=== PATIENT | female | born 1975 | race Caucasian/White ===

== ENCOUNTER → 2021-03-05 | Outpatient (CLI) | payer MEDICAID, SELFPAY | END | disposition home or self-care (01) | LOC: LABSPEC 15:54 | PROVIDERS: Visit Provider Physician Assistant | DX: Z20.822 Contact with and (suspected) exposure to COVID-19 (principal) | CPT/HCPCS: 87635; U0005; U0003 ==

== ENCOUNTER 2021-03-10 05:04 | Emergency (ER) | payer MEDICAID, SELFPAY ==
[2021-03-10] VITALS (7 sets, daily range): BP systolic 120–124; BP diastolic 78–87; PULSE 71–94; RESP 14–21; TEMP 36.5–36.6; O2SAT 96–99; BMI 23.7
--- NOTE | 2021-03-10 05:41 | EKG12_ITS ---
Test Reason : SOB Blood Pressure : / mmHG Vent. Rate : 091 BPM Atrial Rate : 091 BPM P-R Int : 134 ms QRS Dur : 080 ms QT Int : 368 ms P-R-T Axes : 061 028 026 degrees QTc Int : 452 ms Normal sinus rhythm Low voltage QRS (Limb Leads) Confirmed by BILLY MOCK, MADDIE ([id number]), content editor MIRA VELA ([id number]) on 03/12/2021 10:15:21 AM Referred By: JASON Confirmed By:MADDIE CERVANTES MD
--- NOTE | 2021-03-10 05:42 | EDS_ITS ---
HPI History of Present Illness Chief Complaint: Shortness of Breath Narrative Narrative: Patient with past medical history of asthma presents with increasing shortness of breath and upper respiratory infection type symptoms that she has had since Wednesday of last week, approximately 7 days ago. She states that she was already tested for Covid and was negative. However, she has an occasional nonproductive cough and that she has chest tightness consistent with her asthma. She denies any vomiting but occasion is slightly nauseated. She has increasing shortness of breath and chest tightness. She denies any leg swelling. No other symptoms. She feels as if her albuterol inhaler is not working well, and she takes prednisone 10 mg daily. [facility] Medical History (Updated 03/10/21 @ 07:15 by Oneil Hobson MD) Encounter for screening for COVID-19 Home Medications benzonatate 200 mg capsule 200 mg PO TID PRN #30 cap 03/05/21 [Rx Last Taken Unknown] albuterol sulfate 2 puff Q4H PRN PRN 03/10/21 [History Last Taken Unknown] doxycycline hyclate 100 mg BID 03/10/21 [History Last Taken Unknown] fluticasone propionate 2 spray INTRANASAL DAILY 03/10/21 [History Last Taken Unknown] lansoprazole [Prevacid] 15 mg DAILY 03/10/21 [History Last Taken Unknown] prednisone 10 mg DAILY 03/10/21 [History Last Taken Unknown] prednisone 40 mg PO DAILY #14 tab 03/10/21 [Rx Last Taken Unknown] Allergy/AdvReac Type Severity Reaction Status Date / Time azithromycin [From Zithromax] Allergy Unknown unknown Verified 03/10/21 05:11 codeine Allergy Unknown unknown Verified 03/10/21 05:11 Penicillins Allergy Unknown unknown Verified 03/10/21 05:11 Social History (Updated 03/05/21 @ 12:24 by Iliana Banks) Smoking Status: Never smoker ROS ROS ED ROS Narrative Constitutional: No fever, no chills. HEENT: No sore throat. No neck pain. No loss of vision. Occasional rhinorrhea. Cardiovascular: No chest pain. No palpitations. No pedal edema. Respiratory: Positive nonproductive cough, positive shortness of breath. Positive chest tightness. Abdominal: No abdominal pain. No nausea. No vomiting. Genitourinary: No dysuria. No hematuria. Musculoskeletal: No myalgias. No arthralgias. Neurologic: No headaches. No dizziness. No lightheadedness. Skin: No rash. No change in color. Psychiatric: No depression. No anxiety. EXAM Physical Exam Narrative Exam Narrative: Afebrile. Vital signs noted. HEENT: Normocephalic. Atraumatic. PERRL, EOMI. Neck soft and supple. No point tenderness or step off. Cardiovascular: Regular rate and rhythm. No murmurs, rubs, or gallops appreciated. Respiratory: No tachypnea. Lungs clear to auscultation bilaterally. Moving a fair amount of air. Dry cough on examination. Gastrointestinal: Abdomen soft, nontender, with normoactive bowel sounds. No rebound or guarding. Neurological: Awake. Alert. Nonfocal, nonlateralizing. Skin: No rash. Normal color. No pallor. Musculoskeletal: No pedal edema. Full range of motion extremities. Const Vital Signs: 03/10/21 05:05 03/10/21 05:16 03/10/21 05:18 Temperature 97.7 F L 97.8 F Temperature Source Temporal Oral Pulse Rate 86 86 Respiratory Rate 17 17 Respiratory Effort Short of Breath Respiratory Pattern Blood Pressure 124/86 H 120/78 Blood Pressure Mean 98 92 Pulse Ox 98 99 Oxygen Delivery Method Room Air Room Air Room Air 03/10/21 05:56 03/10/21 07:10 Temperature Temperature Source Pulse Rate 88 94 Respiratory Rate 18 21 H Respiratory Effort Respiratory Pattern Normal Blood Pressure Blood Pressure Mean Pulse Ox Oxygen Delivery Method MDM MDM MDM Narrative Medical decision making narrative: I do feel that the patient is having more of an asthma exacerbation. She will be swabbed for Covid. I ordered a DuoNeb aerosolized treatment along with prednisone 60 mg p.o. as a burst. I will obtain a chest x-ray in 1 view along with an EKG. Her O2 sats are 98 to 99% on room air. Her Covid swab is negative. Chest x-ray shows no acute process. She states that she is taking an antitussive from an urgent care. She started her on doxycycline. I will write her prescription for prednisone burst of 40 mg for the next 7 days. She was told not to take this in conjunction with her daily prednisone. 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 She was also given a note to be off work for 2 days. Repeat examination shows that her chest tightness has improved but it is still there. She'll be given another DuoNeb aerosolized treatment prior to discharge. Disposition is discharged home in stable condition. Lab Data Attestation: I reviewed the patient's lab results. Radiography Diagnostic Testing: Radiology Impression Chest X-Ray 03/10/21 06:10 IMPRESSION: Normal x-ray examination of the chest. Electronically Signed: Chase Shanks MD at 6:31 EDT , Service support , Discharge Plan Triage Chief Complaint: Shortness of Breath ED Provider: Oneil Hobson Dx/Rx/DC Orders Clinical Impression: Asthma, Shortness of breath, Chest tightness Instructions: ED Asthma, Acute (Adult), ED Bronchitis, No Antibiotic (Adult) Prescriptions: New prednisone 20 mg tablet 40 mg PO DAILY Qty: 14 RF: 0 No Action benzonatate 200 mg capsule 200 mg PO TID PRN (Reason: cough) Qty: 30 RF: 0 prednisone 10 mg tablet 10 mg DAILY RF: 0 doxycycline hyclate 100 mg capsule 100 mg BID RF: 0 albuterol sulfate 90 mcg/actuation HFA aerosol inhaler 2 puff Q4H PRN PRN (Reason: Dyspnea) RF: 0 fluticasone propionate 50 mcg/actuation spray,suspension 2 spray INTRANASAL DAILY RF: 0 lansoprazole [Prevacid] 15 mg Capsule,Delayed Release(Dr/Ec) 15 mg DAILY RF: 0 Stand Alone Forms: ED Work / School Excuse Referrals: ARACELIS CAREY [Other] Disposition Disposition: Home, Self Care
[2021-03-10] MEDS: Ipratropium/Albuterol Sulfate 3 ML AMPUL.NEB INHALATION ×2 (05:52→07:55)
[2021-03-10] MEDS: predniSONE 20 MG Tablet 60 MG PO (05:52)
--- NOTE | 2021-03-10 06:10 | RAD_ITS ---
STUDY: X-RAY CHEST REASON FOR EXAM: Female, 45 years old. shortness of breath TECHNIQUE: Single AP portable view of the chest. COMPARISON: None. FINDINGS: There are no confluent pulmonary infiltrates. There is no demonstrated pleural abnormality. Normal size heart. Normal mediastinum and isidro. Normal visualized aortic arch and descending thoracic aorta. There are no demonstrated acute fractures or destructive bone lesions. There is no demonstrated abnormality of the visualized soft tissue structures of the upper abdomen. RAD/Chest 1 View (Portable) IMPRESSION: Normal x-ray examination of the chest. Electronically Signed: Chase Shanks MD at 6:31 EDT , Service support ,
== END 2021-03-10 08:16 | disposition home or self-care (01) ==
PROVIDERS: Emergency Provider Emergency Medicine
DX: J45.901 Unspecified asthma with (acute) exacerbation (principal); Z20.822 Contact with and (suspected) exposure to COVID-19
CPT/HCPCS: 71045; 87426; 93005; 94640; 99283; A4216

== ENCOUNTER 2021-05-03 18:50 | Emergency (ER) | payer MEDICAID, SELFPAY ==
[2021-05-03 18:51] VITALS: BP 139/81; PULSE 91; RESP 14; TEMP 36.8; O2SAT 98; BMI 22.6
--- NOTE | 2021-05-03 19:00 | EX.ED.GENINJ ---
HPI History of Present Illness Chief Complaint: Laceration Detail of Chief Complaint: Right hand laceration Informant: patient Narrative Narrative: Patient presents to the emergency department complaint of right hand laceration that occurred prior to arrival in the emergency department. Patient states that she was pushing a been in and there was a picture frame in it and the corner of the frame lacerated her right hand. The glass was not broken and did not shatter. Patient is right-hand dominant. Patient is up-to-date on tetanus. [facility] Medical History (Updated 05/03/21 @ 19:[address] Mariana Ansari, DO) Encounter for screening for COVID-19 Home Medications benzonatate 200 mg capsule 200 mg PO TID PRN #30 cap 03/05/21 [Rx Last Taken Unknown] albuterol sulfate 2 puff Q4H PRN PRN 03/10/21 [History Last Taken Unknown] doxycycline hyclate 100 mg BID 03/10/21 [History Last Taken Unknown] fluticasone propionate 2 spray INTRANASAL DAILY 03/10/21 [History Last Taken Unknown] lansoprazole [Prevacid] 15 mg DAILY 03/10/21 [History Last Taken Unknown] prednisone 10 mg DAILY 03/10/21 [History Last Taken Unknown] prednisone 40 mg PO DAILY #14 tab 03/10/21 [Rx Last Taken Unknown] Allergy/AdvReac Type Severity Reaction Status Date / Time azithromycin [From Zithromax] Allergy Unknown unknown Verified 03/10/21 05:11 codeine Allergy Unknown unknown Verified 03/10/21 05:11 Penicillins Allergy Unknown unknown Verified 03/10/21 05:11 Iodinated Contrast Media Allergy Anaphylaxis Verified 05/03/21 18:51 [CONTRASTS] Social History (Updated 03/05/21 @ 12:24 by Iliana Banks) Smoking Status: Never smoker ROS ROS ED Constitutional Constitutional ED: Reports systems reviewed and no addt'l complaints, except as documented; Denies body ache(s), change in weight or chills Eyes Eyes: Denies acute decrease in peripheral vision, change in vision, double vision or loss of vision ENT ENT ED: Reports none; Denies ear pain, lip swelling, loss taste/smell, neck pain, otalgia or sore throat Cardiovascular Cardiovascular: Reports none; Denies abdominal pain, chest pain with activity, leg edema, lightheadedness, palpitations, rapid heart rate or syncope Respiratory/Chest Respiratory/Chest: Reports none; Denies change in mental status, dry cough, dyspnea, hemoptysis, shortness of breath at rest or shortness of breath with exertion Gastrointestinal Gastrointestinal: Reports none; Denies abdominal pain, change in stool character, diarrhea, hematemesis, hematochezia, melena, rectal bleeding or vomiting Genitourinary Genitourinary ED: Reports none; Denies abdominal discomfort, anuria, dysuria, genital pain or polyuria Musculoskeletal Musculoskeletal: Reports none and other Details: Right hand laceration ; Denies arthralgias, back pain, difficulty walking, extremity pain, muscle weakness or myalgias Integumentary Reports none; Denies abscess or rash Neurologic Neurologic: Reports none; Denies abnormal gait, confusion, focal weakness, frequent falls, headache(s), loss of vision, numbness, paresthesias, radicular pain, vertigo or weakness Psychiatric Psychiatric: Reports systems reviewed and no addt'l complaints, except as documented and none; Denies behavioral changes, confusion, difficulty concentrating, hallucinations, suicidal ideation, tactile hallucinations or visual hallucinations Endocrine Endocrinology: Denies none, cold intolerance, excessive sweating, fatigue or heat intolerance Hematologic/Lymphatic Hematologic/Lymphatic: Reports none; Denies anemia, easy bleeding or easy bruising Allergic/Immunologic Allergic/Immunologic ED: Denies as per HPI, none, lip swelling, mouth swelling, throat swelling, tongue swelling or hives EXAM Physical Exam Const Vital Signs: 05/03/21 18:51 Temperature 98.2 F Temperature Source Temporal Pulse Rate 91 Respiratory Rate 14 Blood Pressure 139/81 H Blood Pressure Mean 100 Pulse Ox 98 Oxygen Delivery Method Room Air Positive well nourished and well developed General Appearance ED: well developed and NAD HEENT Reports TM's clear and moist mucous membranes normocephalic and atraumatic; Negative for trauma or tenderness Tympanic Membrane ED: Yes TM's clear Eyes PERRL and EOMs intact bilaterally General Eye ED: Negative for pale conjunctiva or scleral icterus Neck no lymphadenopathy, supple and no JVD General: Negative for tenderness Chest Wall inspection of chest normal and palpation of chest normal Chest: Negative for tenderness Resp normal respiratory effort and clear to auscultation bilaterally Effort and Inspection: Negative for respiratory distress or pain with movement Auscultation: Negative for rhonchi, wheezes or diminished lung sounds Cardio regular rate, regular rhythm, S1 normal heart sound, S2 normal heart sound and no murmurs Peripheral Pulses: pulses 2+ throughout GI normal to inspection, nondistended, normoactive bowel sounds, soft to palpation, non-tender, non-distended and no masses Back/Spine no CVA tenderness and no thoracic nor lumbar tenderness Extremity normal to inspection Extremity Narrative: Right hand-patient has a 1.5 cm laceration in the webspace between the thumb and index finger on the volar surface. Small amount of venous oozing noted. Patient has normal range of motion flexion extension of the index finger and thumb. She is neurovascular intact. General Extremety ED: Negative for edema General Extremity: Negative for edema Neuro oriented x3, CN's II-XII intact bilaterally, no sensory deficits noted and gait normal Sensorium / Orientation: awake, alert, oriented to person, oriented to place and oriented to time Motor Exam: strength 5/5 throughout and strength abnormal Psych mental status grossly normal Skin no rashes or lesions noted and no wounds PROC Procedures Lacerations Right hand laceration: Length: 0.59 in Depth: Sub Q Shape: Linear Prep: Sterile Conditions Laceration repair: Irrigated, Lidocaine and Local Irrigated (ml): 50 Number of Sutures/[place]: 2 Suture Information: Ethilon MDM MDM MDM Narrative Medical decision making narrative: Patient was offered suture repair of her laceration. Patient agreed. She tolerated procedure well. Patient advised to follow-up with her primary care physician in 10 days for suture removal. Patient to return if increasing pain, redness, swelling, purulent drainage, or condition should worsen anyway. Discharge Plan Triage Chief Complaint: Laceration Other Complaint: Suture Remv ED Provider: Mariana Ansari Dx/Rx/DC Orders Clinical Impression: Laceration of hand, right Instructions: ED Laceration, Hand: All Closures Prescriptions: No Action benzonatate 200 mg capsule 200 mg PO TID PRN (Reason: cough) Qty: 30 RF: 0 prednisone 10 mg tablet 10 mg DAILY RF: 0 doxycycline hyclate 100 mg capsule 100 mg BID RF: 0 albuterol sulfate 90 mcg/actuation HFA aerosol inhaler 2 puff Q4H PRN PRN (Reason: Dyspnea) RF: 0 fluticasone propionate 50 mcg/actuation spray,suspension 2 spray INTRANASAL DAILY RF: 0 lansoprazole [Prevacid] 15 mg Capsule,Delayed Release(Dr/Ec) 15 mg DAILY RF: 0 prednisone 20 mg tablet 40 mg PO DAILY Qty: 14 RF: 0 Referrals: ARACELIS CAREY [Other] Activity Restrictions/Additional Instructions: Follow-up with your primary care physician in 10 days for suture removal. Disposition Disposition: Home, Self Care
[2021-05-03] MEDS: Lidocaine 1% (20 ml mdv) 20 ML Vial 4 ML INFILT (19:35)
== END 2021-05-03 19:38 | disposition home or self-care (01) ==
LOC: ED 19:08
PROVIDERS: Emergency Provider Emergency Medicine
DX: S61.411A Laceration without foreign body of right hand, initial encounter (principal); W26.8XXA Contact with other sharp object(s), not elsewhere classified, initial encounter; Y93.89 Activity, other specified; Y92.9 Unspecified place or not applicable; Y99.9 Unspecified external cause status
CPT/HCPCS: 12001; 99285

== ENCOUNTER → 2021-06-06 13:18 | Outpatient (CLI) | payer OTHER, SELFPAY ==
--- NOTE | 2021-06-06 13:22 | BI_ITS ---
MAMMOGRAPHY - BILATERAL SCREENING REASON FOR EXAM: Female, 46 years old. Routine annual screening examination. PERTINENT HISTORY: Mother with breast cancer. Grandmother with breast cancer. TECHNIQUE: Digital bilateral breast kathryn (3D mammographic acquisition) in the CC and MLO projections. 2-D mediolateral oblique (MLO) and craniocaudad (CC) views of both breasts were obtained. CAD: Full Field Digital Mammography with Computer Added Detection was performed. COMPARISON: Comparison is made with prior outside examination dated 09/27/2020. FINDINGS: Breast Composition: The breasts are extremely dense, which lowers the sensitivity of mammography. There are no dominant masses or suspicious calcifications. Stable small benign-appearing bilateral axillary No other significant abnormalities are identified. There has been no significant change since the prior study. BI/SCRN MAMM (CAD)W/KATHRYN BILAT IMPRESSION: Stable bilateral screening mammogram. Yearly follow-up mammogram recommended. (A) ASSESSMENT CATEGORY: BIRADS Category 2: Benign. A letter regarding these results will be sent to the patient by the facility within 30 days. Approximately 10% of breast cancers are not detected by mammography. A normal mammogram should not delay biopsy of a clinically suspicious abnormality. [id number] Electronically Signed: Golden Winters MD at 14:34 EST , Service support ,
== END ==
DX: Z12.31 Encounter for screening mammogram for malignant neoplasm of breast (principal)
CPT/HCPCS: 77063; 77067

== ENCOUNTER 2021-07-08 10:04 | Emergency (ER) | payer OTHER, MEDICAID, SELFPAY ==
[2021-07-08 10:05] VITALS: BP 117/75; PULSE 91; RESP 16; TEMP 35.7; BMI 22.6
--- NOTE | 2021-07-08 10:37 | US_ITS ---
STUDY: ABDOMINAL ULTRASOUND - RIGHT UPPER QUADRANT REASON FOR VISIT: Female, 46 years old . 2 day history of right upper quadrant pain with nausea. TECHNIQUE: Ultrasound evaluation of the right upper quadrant was performed with real-time and static hsu-scale imaging. TECHNICAL QUALITY: Adequate. COMPARISON: None. FINDINGS: Liver: The liver measures 15.1 cm. There is normal echogenicity of the liver. The bile ducts are within normal limits. There is hepatic color flow. The direction of portal flow is hepatopetal. There is no demonstrated mass lesion. Gallbladder: Normal distended gallbladder. The gallbladder wall measures 1.7 mm. There is a negative sonographic Bills''s sign. There is no pericholecystic fluid. There are no gallstones. Common Bile Duct (C.B.D.): The common bile duct measures 5.9 mm. Pancreas: Normal size of the head, body and tail of the pancreas. There is normal echogenicity of the pancreas. There is no demonstrated pancreatic mass or cyst. Right Kidney: Normal size of the right kidney. The right kidney measures 10.2 cm x 4.3 cm x 5.2 cm. Normal renal cortex. The right cortex measures 1.8 cm. There is no demonstrated renal mass or cyst. There is no right hydronephrosis. US/Gallbladder IMPRESSION: Normal right upper quadrant ultrasound examination. Electronically Signed: Golden Winters MD at 12:24 EST , Service support ,
[2021-07-08] MEDS: 0.9% Normal Saline 1,000 ML 1000 ML IV (11:02)
[2021-07-08] MEDS: Ondansetron 4 MG/2 ML Vial IV (11:02)
[2021-07-08] MEDS: Morphine 4 MG/ML Syringe IV (11:03)
[2021-07-08 11:17] LABS: Absolute Lymphocyte Count 1.01 X10^3/uL (0.83-4.51); Absolute Neutrophil Count 9.6 X10^3/uL (2.0-7.7); Basophil# 0.02 X10^3/uL; Basophil% 0.2 % (0-1); Eosinophil# 0.05 X10^3/uL; Eosinophils% 0.5 % (0-5); Hematocrit 43.1 % (37-47); Hemoglobin 13.8 g/dL (12.0-15.0); Lymphocyte # 1.01 X10^3/ul (0.83-4.51); Lymphocyte % 9.1 % (19-41); Mean Corpuscular Hgb 29.5 pg (27.0-32.0); Mean Corpuscular Volume 92.1 fL (81-99); Mean Platelet Vol. 10.1 fl (6.2-12.0); Monocyte# 0.35 X10^3/uL; Monocyte% 3.2 % (0-10); NRBC Flagged by Analyzer 0 % (0-5); Neutrophil # 9.59 X10^3/uL (2.7-7.7); Neutrophil % 86.5 % (47-70); Platelet Count 326 K/mm3 (150-450); RBC Distribution Width CV 12.9 % (11.6-14.6); RBC Distribution Width SD 43.6 fl (35.1-43.9); Red Blood Count 4.68 M/mm3 (4.2-5.4); White Blood Count 11.1 K/mm3 (4.4-11.0)
[2021-07-08 11:33] LABS: AST(SGOT) 10 U/L (15-37); Alanine Aminotransfer ALT/SGPT 23 U/L (13-56); Albumin, Serum 4.2 g/dL (3.2-5.0); Alkaline Phosphatase 81 U/L (45-117); Anion Gap 7 (5-15); BUN 12 mg/dL (7-18); BUN/Creat Ratio 12.2 RATIO (10-20); Bilirubin, Direct 0.13 mg/dL (0.00-0.30); Chloride 104 mmol/L (98-107); Creatinine, Serum 0.98 mg/dL (0.55-1.02); EST Glomerular Filtration Rate 65 mL/min (>60); Est Glom Filt Rate - Afr Amer 79 mL/min (>60); Estimated Creatinine Clearance 68.58 ml/min; Glucose 82 mg/dL (74-106); Lipase 228 U/L (73-393); Potassium 3.4 mmol/L (3.5-5.1); Protein, Total 8.2 g/dL (6.4-8.2); Sodium Level 140 mmol/L (136-145)
[2021-07-08] MEDS: HYDROmorphone 1 MG/ML Syringe IV (12:26)
[2021-07-08 12:28] VITALS: BP 110/70; PULSE 80; RESP 18; O2SAT 99
[2021-07-08] MEDS: Mag Hydrox/Al Hydrox/Simeth 30 ML UDC PO (12:56)
--- NOTE | 2021-07-08 13:01 | EDS_ITS ---
HPI History of Present Illness Chief Complaint: Abd Pain Narrative Narrative: Patient presents with epigastric pain, some right upper quadrant abdominal pain. This has been ongoing for a few days. No fevers chills cough or congestion. The pain does not radiate to her back. She has no lower abdominal pain. She has some nausea but no vomiting. [facility] Medical History Encounter for screening for COVID-19 Home Medications albuterol sulfate 2 puff Q4H PRN PRN 03/10/21 [History Last Taken Unknown] fluticasone propionate 2 spray INTRANASAL DAILY 03/10/21 [History Last Taken Unknown] dexlansoprazole [Dexilant] 60 mg PO DAILY 07/08/21 [History Last Taken Unknown] sucralfate [Carafate] 1 g PO BID #14 tab 07/08/21 [Rx Last Taken Unknown] Allergy/AdvReac Type Severity Reaction Status Date / Time azithromycin [From Zithromax] Allergy Unknown unknown Verified 07/08/21 10:07 codeine Allergy Unknown unknown Verified 07/08/21 10:07 Penicillins Allergy Unknown unknown Verified 07/08/21 10:07 Iodinated Contrast Media Allergy Anaphylaxis Verified 07/08/21 10:07 [CONTRASTS] Surgical History Hx of knee surgery Social History Smoking Status: Never smoker ROS ROS ED ROS Narrative Past medical history: Reviewed Medications: Reviewed Social history: Noncontributory Review of systems: All systems negative except as indicated General: No fever Eyes: No visual changes ENT: No upper airway congestion, normal voice Neck: No neck pain Cardiovascular: No chest pain Respiratory: No shortness of breath or cough Gastrointestinal: Abdominal pain as in HPI Genitourinary: No dysuria Musculoskeletal: Denies myalgias no difficulty with ambulation Skin: No rash Neurological: No memory loss, confusion or any focal weakness Psych: No recent behavioral changes Hematologic: No easy bleeding or easy bruising EXAM Physical Exam Narrative Exam Narrative: Physical exam General: Well nourished, Well developed, No Acute Distress Head: Normocephalic, Atraumatic Eyes: Conjunctiva not pale ENT: Moist mucous membranes Neck: Supple, Nontender, No lymphadenopathy Cardiovascular: Regular rate, Regular rhythm Respiratory: No distress, CTA bilaterally Abdomen: Soft, is some epigastric and right upper quadrant pain. There is no guarding or rebound. Bills's is negative however. No lower abdominal pain or pain at McBurney's. Back: Nontender, Normal Inspection. Negative for: CVA tenderness Extremities: Nontender, No edema Skin: Normal color, No rash Neurological: Alert, Normal Strength, Normal Sensation Psychological: Normal affect Const Vital Signs: 07/08/21 10:05 07/08/21 12:28 Temperature 96.2 F L Temperature Source Temporal Pulse Rate 91 80 Respiratory Rate 16 18 Blood Pressure 117/75 110/70 Blood Pressure Mean 89 83 Pulse Ox 99 Oxygen Delivery Method Room Air MDM MDM MDM Narrative Medical decision making narrative: Patient has a normal bowel work-up which likely signifies gastric etiology however there could be a gallbladder dysfunction and may need a HIDA scan. Regardless she improved she can be safely discharged for outpatient follow-up she does have an appointment with her GI doctor in the next few weeks. Lab Data Labs: Laboratory Results - last 24 hr 07/08/21 07/08/21 11:10 11:10 WBC 11.1 H RBC 4.68 Hgb 13.8 Hct 43.1 MCV 92.1 MCH 29.5 MCHC 32.0 RDW Std Deviation 43.6 RDW Coeff of Bryan 12.9 Plt Count 326 MPV 10.1 Immature Gran % (Auto) 0.500 Neut % (Auto) 86.5 H Lymph % (Auto) 9.1 L [place] % (Auto) 3.2 Eos % (Auto) 0.5 Baso % (Auto) 0.2 Absolute Neuts (auto) 9.6 H Absolute Lymphs (auto) 1.01 Nucleated RBC % 0 Sodium 140 Potassium 3.4 L Chloride 104 Carbon Dioxide 29.0 Anion Gap 7 BUN 12 Creatinine 0.98 Estim Creat Clear Calc 68.58 Est GFR (MDRD) Af Amer 79 Est GFR (MDRD) Non-Af 65 BUN/Creatinine Ratio 12.2 Glucose 82 Calcium 10.0 Total Bilirubin 0.50 Direct Bilirubin 0.13 AST 10 L ALT 23 Alkaline Phosphatase 81 Total Protein 8.2 Albumin 4.2 Globulin 4.0 Lipase 228 Radiography Diagnostic Testing: Clinical Impression(s) from Imaging Studies Gallbladder Ultrasound 07/08/21 10:37 IMPRESSION: Normal right upper quadrant ultrasound examination. Electronically Signed: Golden Winters MD at 12:24 EST , Service support , Discharge Plan Triage Chief Complaint: Abd Pain ED Provider: Van Singh Dx/Rx/DC Orders Clinical Impression: Abdominal pain Instructions: Abdominal Pain Prescriptions: New sucralfate [Carafate] 1 gram tablet 1 g PO BID Qty: 14 RF: 0 No Action albuterol sulfate 90 mcg/actuation HFA aerosol inhaler 2 puff Q4H PRN PRN (Reason: Dyspnea) RF: 0 fluticasone propionate 50 mcg/actuation spray,suspension 2 spray INTRANASAL DAILY RF: 0 Dexilant 60 mg Capsule,Biphase Delayed Releas 60 mg PO DAILY RF: 0 Referrals: ARACELIS CAREY [Other] Disposition Disposition: Home, Self Care
[2021-07-08] MEDS: Famotidine 200 MG/20 ML MDV 20 MG in 0.9% Normal Saline (Pres. free 8 ML 300 MG IV (13:11)
== END 2021-07-08 13:47 | disposition home or self-care (01) ==
PROVIDERS: Emergency Provider Emergency Medicine; Visit Provider Emergency Medicine
DX: R10.13 Epigastric pain (principal); R10.11 Right upper quadrant pain; R11.0 Nausea
CPT/HCPCS: 76705; 80048; 80076; 83690; 85025; 96361; 96374; 96375; 99284; J7030; J2405; J3490

== ENCOUNTER 2021-07-10 08:49 | Day surgery (SDC) | payer OTHER, MEDICAID, SELFPAY ==
[2021-07-10] VITALS (11 sets, daily range): BP systolic 92–121; BP diastolic 58–80; PULSE 16–101; RESP 16–20; TEMP 36.2–36.9; O2SAT 96–100; BMI 22.7
--- NOTE | 2021-07-10 | APP_PTH ---
PATIENT: ARCHIE NASH LOC: [facility] [place] U#:[id number] AGE/SX: 46/F ROOM: RE07/10/[address]: Dr. Elisha Mckee MD : [id number] BED: DIS: 07/10/2021 SPEC #: [id number] RECD: 07/11/21 11:31 STATUS: JACKI STEPH #: [id number] PEE: 07/10/21 00:[address]: Elisha Mckee DEPT: SURGICAL PATHOLOGY RECD BY: Evaristo Mason Tissues: Appendix, NOS Procedures: Surgery Specimen Level III HEADER OPERATION: Laparoscopic appendectomy PRE-OP DIAGNOSIS: Abdominal pain TISSUE SUBMITTED: Appendix MICROSCOPIC DIAGNOSIS Appendix, appendectomy: Fibrous obliteration of distal appendix. Fecal impaction. No evidence of appendicitis. AM:thelma 07/14/2021 COMMENT Case has been reviewed in consultation with Dr. Harvey who concurs with the above diagnosis. IDC:SJ MICROSCOPIC DESCRIPTION Slides are reviewed. GROSS DESCRIPTION Received in fixative is one container labeled with the patient's name and designated appendix. The specimen consists of a C-shaped appendix measuring 4 cm in length and up to 0.5 cm in diameter. The attached periappendiceal adipose tissue measures up to 1 cm in width. The serosa is glasgow, glistening. No obvious perforation is identified. The lumen is filled with fecal material. The entire appendix is submitted in two cassettes as follows: 1 ? proximal portion and distal tip, 2 ? rest of the specimen. / SAMANTHA:thelma 07/11/2021 TC:5 [facility]: [id number]
--- NOTE | 2021-07-10 09:42 | CT_ITS ---
STUDY: CT ABDOMEN AND PELVIS WITHOUT CONTRAST REASON FOR EXAM: Female, 46 years old. Several day history of right lower quadrant pain. Nausea. RADIATION DOSAGE (If Supplied By Facility): CTDIvol = ( 6.05 ) mGy, DLP = ( 282.56 ) mGycm TECHNIQUE: Transaxial images were obtained from the dome of the diaphragm to the symphysis pubis without oral contrast, and without intravenous contrast. Sagittal and coronal images were reconstructed. Individualized dose optimization techniques were used for this CT. COMPARISON: None. FINDINGS: Minimal degree of dependent bibasilar atelectasis. The visualized portions of the heart are within normal limits. Normal liver. Normal gallbladder and extrahepatic biliary system. Normal spleen. Normal pancreas. Normal bilateral adrenal glands. Normal right kidney. Normal left kidney. Normal visualized stomach. Normal small intestine. There are scattered colonic diverticula consistent with diverticulosis. There is a calcified appendicolith. Normal abdominal aorta. Normal inferior vena cava. Normal retroperitoneum. Normal urinary bladder. There is a small umbilical hernia containing fat. Normal osseous structures. CT/Abdomen/Pelvis without Cont IMPRESSION: Calcified appendicolith. No inflammatory changes are seen at this time. Electronically Signed: Golden Winters MD at 11:01 EST , Service support ,
[2021-07-10 09:50] LABS: Red Blood Cells-Urine 0 SEEN /hpf (0-5); White Blood Cells 0 SEEN /hpf (0-5)
[2021-07-10 09:51] LABS: Bacteria 0 SEEN /hpf (None Seen); Mucous, Urine 0 SEEN /hpf (<or=2+)
--- NOTE | 2021-07-10 09:54 | EDS_ITS ---
HPI HPI - GI History of Present Illness Chief Complaint: Abd Pain Informant: patient Abdominal Pain/Flank Pain Onset: Days (4) Context: Gradual Onset Timing: Continuous Quality: Burning, Cramping and Sharp Location: RUQ and Right Flank Worsened by: Food Relieved by: Nothing Nausea/Vomiting/Emesis GI Symptom: Positive for Nausea; Negative for Vomiting Diarrhea/Melena/Hematochezia GI Symptom: Negative for Diarrhea, Melena and Hematochezia Associated Symptoms Associated Symptoms: Negative for Dysuria and Hematuria Narrative Narrative: Patient presents with abdominal pain that has been getting progres sively worse over the past 4 days. Patient states her pain is worse over the right upper quadrant and right flank area. Patient states her pain has been constant. Patient was seen here 2 days ago. Patient was discharged at that time. Patient states her pain has been getting worse. Patient describes it as sharp, burning, and cramping. Patient states that is worse after eating. Patient admits to nausea but denies any vomiting. Patient denies any diarrhea, melena, or hematochezia. Patient denies any urinary complaints. Patient denies any abnormal vaginal bleeding or discharge. PFSH PFS Medical History Encounter for screening for COVID-19 Home Medications albuterol sulfate 2 puff Q4H PRN PRN 03/10/21 [History Last Taken Unknown] fluticasone propionate 2 spray INTRANASAL DAILY 03/10/21 [History Last Taken Unknown] dexlansoprazole [Dexilant] 60 mg PO DAILY 07/08/21 [History Last Taken Unknown] sucralfate [Carafate] 1 g PO BID #14 tab 07/08/21 [Rx Last Taken Unknown] oxycodone-acetaminophen 1 - 2 tab PO Q6H PRN 3 Days #15 tab 07/10/21 [Rx Last Taken Unknown] Allergy/AdvReac Type Severity Reaction Status Date / Time azithromycin [From Zithromax] Allergy Unknown unknown Verified 07/10/21 08:53 codeine Allergy Unknown unknown Verified 07/10/21 08:53 Penicillins Allergy Unknown unknown Verified 07/10/21 08:53 Iodinated Contrast Media Allergy Anaphylaxis Verified 07/10/21 08:53 [CONTRASTS] Surgical History Hx of knee surgery Social History Smoking Status: Never smoker ROS ROS ED Constitutional Constitutional ED: Reports chills; Denies fever(s) Eyes Eyes: Denies blurry vision or change in vision ENT ENT ED: Denies rhinorrhea or sore throat Cardiovascular Cardiovascular: Denies chest pain or palpitations Respiratory/Chest Respiratory/Chest: Denies cough or dyspnea Gastrointestinal Gastrointestinal: Reports abdominal pain and nausea; Denies vomiting Genitourinary Genitourinary ED: Denies dysuria or hematuria Musculoskeletal Musculoskeletal: Reports back pain; Denies neck pain Integumentary Denies abscess or rash Neurologic Neurologic: Denies headache(s) or weakness Allergic/Immunologic Allergic/Immunologic ED: Denies mouth swelling or urticaria EXAM Physical Exam Const Vital Signs: 07/10/21 08:51 07/10/21 12:00 07/10/21 13:54 Temperature 98.1 F 98 F Temperature Source Temporal Temporal Pulse Rate 74 16 L 70 Respiratory Rate 16 20 H Blood Pressure 121/63 H 120/70 Blood Pressure Mean 82 86 Pulse Ox 97 Oxygen Delivery Method Room Air Positive well nourished and well developed General Appearance ED: well developed HEENT Reports moist mucous membranes Neck supple and no JVD Resp normal respiratory effort and clear to auscultation bilaterally Cardio regular rate, regular rhythm and no murmurs GI normal to inspection, nondistended, normoactive bowel sounds and non-distended Auscultation: normoactive bowel sounds Palpation: soft and tender RUQ Back/Spine General Back: CVA tenderness right Extremity normal to inspection General Extremety ED: Negative for edema or tenderness General Extremity: Negative for edema Neuro oriented x3, CN's II-XII intact bilaterally and no sensory deficits noted Sensorium / Orientation: alert Motor Exam: strength 5/5 throughout Psych mental status grossly normal Skin no rashes or lesions noted MDM MDM MDM Narrative Medical decision making narrative: CBC was within normal limits. Comprehensive metabolic profile was normal. Lipase was normal. Urinalysis does not show any evidence of urinary tract infection. CT scan of the abdomen pelvis was obtained. There is an appendicolith noted. There is no inflammatory changes noted. There is no other acute abnormality noted. Case was discussed with Dr. Mckee. She will take the patient to the operating room today. Patient understands and is agreeable with the plan. All questions were answered. Lab Data Attestation: I reviewed the patient's lab results. Labs: Laboratory Results - last 24 hr 07/10/21 07/10/21 07/10/21 09:29 09:50 09:50 WBC 8.0 RBC 4.28 Hgb 13.0 Hct 38.9 MCV 90.9 MCH 30.4 MCHC 33.4 RDW Std Deviation 42.5 RDW Coeff of [place] 12.9 Plt Count 276 MPV 9.9 Immature Gran % (Auto) 0.400 Neut % (Auto) 71.4 H Lymph % (Auto) 20.6 [place] % (Auto) 6.3 Eos % (Auto) 1.0 Baso % (Auto) 0.3 Absolute Neuts (auto) 5.7 Absolute Lymphs (auto) 1.65 Nucleated RBC % 0 Sodium 140 Potassium 3.7 Chloride 106 Carbon Dioxide 30.0 Anion Gap 4 L BUN 11 Creatinine 0.96 Estim Creat Clear Calc 70.01 Est GFR (MDRD) Af Amer 81 Est GFR (MDRD) Non-Af 67 BUN/Creatinine Ratio 11.4 Glucose 92 Calcium 9.4 Total Bilirubin 0.50 AST 6 L ALT 19 Alkaline Phosphatase 69 Total Protein 7.1 Albumin 3.8 Globulin 3.3 Albumin/Globulin Ratio 1.2 Lipase 179 Serum , Qual Urine Color Yellow Urine Clarity Clear Urine pH 6.0 Ur Specific [place] 1.015 Urine Protein Negative Urine Glucose (UA) Normal Urine Ketones Negative Urine Occult Blood 25 H Urine Nitrite Negative Urine Bilirubin Negative Urine Urobilinogen Normal Ur Leukocyte Esterase 100 H Urine RBC 0 SEEN Urine WBC 0 SEEN Ur Squamous Epith Cells 0-5 SEEN Urine Bacteria 0 SEEN Urine Mucus 0 SEEN 07/10/21 09:50 WBC RBC Hgb Hct MCV MCH MCHC RDW Std Deviation RDW Coeff of [place] Plt Count MPV Immature Gran % (Auto) Neut % (Auto) Lymph % (Auto) [place] % (Auto) Eos % (Auto) Baso % (Auto) Absolute Neuts (auto) Absolute Lymphs (auto) Nucleated RBC % Sodium Potassium Chloride Carbon Dioxide Anion Gap BUN Creatinine Estim Creat Clear Calc Est GFR (MDRD) Af Amer Est GFR (MDRD) Non-Af BUN/Creatinine Ratio Glucose Calcium Total Bilirubin AST ALT Alkaline Phosphatase Total Protein Albumin Globulin Albumin/Globulin Ratio Lipase Serum , Qual NEGATIVE Urine Color Urine Clarity Urine pH Ur Specific [place] Urine Protein Urine Glucose (UA) Urine Ketones Urine Occult Blood Urine Nitrite Urine Bilirubin Urine Urobilinogen Ur Leukocyte Esterase Urine RBC Urine WBC Ur Squamous Epith Cells Urine Bacteria Urine Mucus Radiography Diagnostic Testing: Clinical Impression(s) from Imaging Studies Abdomen/Pelvis CT 07/10/21 09:42 IMPRESSION: Calcified appendicolith. No inflammatory changes are seen at this time. Electronically Signed: Golden Winters MD at 11:01 EST , Service support , Treatment and Re-Evaluation Vital Sign Attestation:: Vital signs reviewed prior to admission. They are stable. Discharge Plan Dx/Rx/DC Orders Clinical Impression: Appendicolith, Abdominal pain Disposition Disposition: Acute Care Hospital [facility] Discharge Date/Time: 07/10/21 13:55
[2021-07-10] MEDS: 0.9% Normal Saline 1,000 ML 1000 ML IV (10:00)
[2021-07-10] MEDS: Ondansetron 4 MG/2 ML Vial IV (10:00)
[2021-07-10] MEDS: Morphine 4 MG/ML Syringe IV ×2 (10:01→11:53)
[2021-07-10 10:02] LABS: Color, Urine Yellow (Yellow); Glucose, Dipstick Normal (Normal); Ketone-Dipstick Negative (Negative); Leukocyte Esterase-Dipstick 100 /ul (Negative); Nitrite-Dipstick Negative (Negative); Occult Blood-Urine 25 /ul (Negative); Protein-Dipstick Negative (Negative); Specific Gravity, Urine 1.015 (1.002-1.030); Urine Bilirubin Dipstick Negative (Negative); Urine Clarity Clear (Clear); Urine Urobilinogen Normal (Normal)
[2021-07-10 10:05] LABS: Absolute Lymphocyte Count 1.65 X10^3/uL (0.83-4.51); Absolute Neutrophil Count 5.7 X10^3/uL (2.0-7.7); Basophil# 0.02 X10^3/uL; Basophil% 0.3 % (0-1); Eosinophil# 0.08 X10^3/uL; Hematocrit 38.9 % (37-47); Lymphocyte # 1.65 X10^3/ul (0.83-4.51); Lymphocyte % 20.6 % (19-41); Mean Corp Hgb Conc 33.4 g/dL (32-36); Mean Corpuscular Hgb 30.4 pg (27.0-32.0); Mean Corpuscular Volume 90.9 fL (81-99); Mean Platelet Vol. 9.9 fl (6.2-12.0); Monocyte% 6.3 % (0-10); NRBC Flagged by Analyzer 0 % (0-5); Neutrophil # 5.72 X10^3/uL (2.7-7.7); Neutrophil % 71.4 % (47-70); Platelet Count 276 K/mm3 (150-450); RBC Distribution Width CV 12.9 % (11.6-14.6); RBC Distribution Width SD 42.5 fl (35.1-43.9); Red Blood Count 4.28 M/mm3 (4.2-5.4)
[2021-07-10 10:12] LABS: Squamous Epithelial Cells - UA 0-5 SEEN /hpf (5-10)
[2021-07-10 10:16] LABS: ALB/GLOB Ratio 1.2 RATIO (0.9-2.4); AST(SGOT) 6 U/L (15-37); Alanine Aminotransfer ALT/SGPT 19 U/L (13-56); Albumin, Serum 3.8 g/dL (3.2-5.0); Alkaline Phosphatase 69 U/L (45-117); Anion Gap 4 (5-15); BUN 11 mg/dL (7-18); BUN/Creat Ratio 11.4 RATIO (10-20); Calcium,Total 9.4 mg/dL (8.5-10.1); Chloride 106 mmol/L (98-107); Creatinine, Serum 0.96 mg/dL (0.55-1.02); EST Glomerular Filtration Rate 67 mL/min (>60); Est Glom Filt Rate - Afr Amer 81 mL/min (>60); Estimated Creatinine Clearance 70.01 ml/min; Globulin 3.3 g/dL (2.2-4.2); Glucose 92 mg/dL (74-106); Lipase 179 U/L (73-393); Potassium 3.7 mmol/L (3.5-5.1); Protein, Total 7.1 g/dL (6.4-8.2); Sodium Level 140 mmol/L (136-145)
[2021-07-10 10:43] LABS: Internal QC Validated? YES +Cl - CLEAR BKGD; Pregnancy, Serum, hCG Quali. NEGATIVE Negative
--- NOTE | 2021-07-10 13:45 | HP.PCM_ITS ---
HPI - General HPI Narrative ARCHIE NASH, is a 46 F who presents with a 1 week history of RLQ pain. Patient stated the pain started last week with no specific trauma or events noted. She notes nausea with the pain. She denies vomiting. She notes lack of appetite for 1 week. She denies previous history of gallbladder problems. She states she has a history of IBS. She notes taking Dexilant and Imodium to assist with her bowel regimen. She follows with a line analyst. She notes the pain has been sharp and stabbing in nature. She notes notes some back pain. She was in the ED 2 days ago and evaluated for her gallbladder. RUQ u/s was normal. She returns today due to the pain is not getting any better and she has not been able to w ork for at least 1 week. She notes having COVID around [place] time in 2020. She is not vaccinated. She denies alcohol and drug use. She does have fibromyalgia, asthma and mitral valve prolapse. She lovett shave an inhaler as needed. She has not been hospitalized recently for an asthma attack. CT scan of the ab/pel demonstrated an appendicolith. [facility] Medical History Encounter for screening for COVID-19 Home Medications albuterol sulfate 2 puff Q4H PRN PRN 03/10/21 [History Last Taken Unknown] fluticasone propionate 2 spray INTRANASAL DAILY 03/10/21 [History Last Taken Unknown] dexlansoprazole [Dexilant] 60 mg PO DAILY 07/08/21 [History Last Taken Unknown] sucralfate [Carafate] 1 g PO BID #14 tab 07/08/21 [Rx Last Taken Unknown] Allergy/AdvReac Type Severity Reaction Status Date / Time azithromycin [From Zithromax] Allergy Unknown unknown Verified 07/10/21 08:53 codeine Allergy Unknown unknown Verified 07/10/21 08:53 Penicillins Allergy Unknown unknown Verified 07/10/21 08:53 Iodinated Contrast Media Allergy Anaphylaxis Verified 07/10/21 08:53 [CONTRASTS] Surgical History Hx of knee surgery Social History Smoking Status: Never smoker ROS Constitutional Constitutional: Reports systems reviewed and no addt'l complaints, except as documented Eyes Eyes: Reports systems reviewed and no addt'l complaints, except as documented ENT HEENT: Reports systems reviewed and no addt'l complaints, except as documented Cardiovascular Cardiovascular: Reports systems reviewed and no addt'l complaints, except as documented Respiratory/Chest Respiratory/Chest: Reports systems reviewed and no addt'l complaints, except as documented Gastrointestinal Gastrointestinal: Reports systems reviewed and no addt'l complaints, except as documented Genitourinary Genitourinary: Reports systems reviewed and no addt'l complaints, except as documented Musculoskeletal Musculoskeletal: Reports systems reviewed and no addt'l complaints, except as documented Integumentary Integumentary: Reports systems reviewed and no addt'l complaints, except as documented Neurologic Neurologic: Reports systems reviewed and no addt'l complaints, except as documented Psychiatric Psychiatric: Reports systems reviewed and no addt'l complaints, except as docum ented Endocrine Endocrinology: Reports systems reviewed and no addt'l complaints, except as documented Hematologic/Lymphatic Hematologic/Lymphatic: Reports systems reviewed and no addt'l complaints, except as documented Allergic/Immunologic Allergic/Immunologic: Reports systems reviewed and no addt'l complaints, except as documented Vital Signs Vital Signs Vital Signs: 07/10/21 08:51 07/10/21 12:00 Temperature 98.1 F Temperature Source Temporal Pulse Rate 74 16 L Respiratory Rate 16 Blood Pressure 121/63 H Blood Pressure Mean 82 Pulse Ox 97 Oxygen Delivery Method Room Air Weight Weight: 141 lb 1.533 oz Body Mass Index (BMI) 22.7 Physical Exam Const alert and oriented x3 General Appearance: in distress HEENT normocephalic Eyes PERRL Neck full ROM Lymph Lymphatic: no lymphadenopathy noted Resp normal respiratory effort and clear to auscultation bilaterally Cardio regular rate and regular rhythm GI Inspection: abdominal distention and other Other Details: umbilical hernia noted. Auscultation: hypoactive bowel sounds Palpation: soft, tender McBurney's point and Rovsing's sign and guarding RLQ no CVA tenderness Back/Spine no CVA tenderness Extremity normal to inspection Skin no rashes or lesions noted Neuro oriented x3, no focal motor deficits and no sensory deficits noted Psych mental status grossly normal Results Lab / Micro Data Result Diagrams: 07/10/21 09:50 07/10/21 09:50 Labs: Laboratory Results - last 24 hr 07/10/21 09:29: Urine Color Yellow, Urine Clarity Clear, Urine pH 6.0, Ur Specific [place] 1.015, Urine Protein Negative, Urine Glucose (UA) Normal, Urine Ketones Negative, Urine Occult Blood 25 H, Urine Nitrite Negative, Urine Bilirubin Negative, Urine Urobilinogen Normal, Ur Leukocyte Esterase 100 H, Urine RBC 0 SEEN, Urine WBC 0 SEEN, Ur Squamous Epith Cells 0-5 SEEN, Urine Bacteria 0 SEEN, Urine Mucus 0 SEEN 07/10/21 09:50: WBC 8.0, RBC 4.28, Hgb 13.0, Hct 38.9, MCV 90.9, MCH 30.4, MCHC 33.4, RDW Std Deviation 42.5, RDW Coeff of [place] 12.9, Plt Count 276, MPV 9.9, Immature Gran % (Auto) 0.400, Neut % (Auto) 71.4 H, Lymph % (Auto) 20.6, [place] % (Auto) 6.3, Eos % (Auto) 1.0, Baso % (Auto) 0.3, Absolute Neuts (auto) 5.7, Absolute Lymphs (auto) 1.65, Nucleated RBC % 0 07/10/21 09:50: Sodium 140, Potassium 3.7, Chloride 106, Carbon Dioxide 30.0, Anion Gap 4 L, BUN 11, Creatinine 0.96, Estim Creat Clear Calc 70.01, Est GFR (MDRD) Af Amer 81, Est GFR (MDRD) Non-Af 67, BUN/Creatinine Ratio 11.4, Glucose 92, Calcium 9.4, Total Bilirubin 0.50, AST 6 L, ALT 19, Alkaline Phosphatase 69, Total Protein 7.1, Albumin 3.8, Globulin 3.3, Albumin/Globulin Ratio 1.2, Lipase 179 07/10/21 09:50: Serum , Qual NEGATIVE Radiology Impression Abdomen/Pelvis CT 07/10/21 09:42 IMPRESSION: Calcified appendicolith. No inflammatory changes are seen at this time. Electronically Signed: Golden Winters MD at 11:01 EST , Service support , Assessment & Plan Assessment/Plan (1) Abdominal pain: QUALIFIERS: Abdominal location: right lower quadrant Qualified Code(s): R10.31 - Right lower quadrant pain PLAN: I have evaluated this patient in conjunction with Dr. Mckee. She will independently evaluate this patient. Dr. Mckee will plan to perform a laparoscopic appendectomy. Procedure details, risks and benefits have been explained to the patient. Patient has had the opportunity to ask and have questions answered. Patient verbally understands and agrees with the plan. Thank you for allowing us to participate in this patient's care. Charges/Coding Visit Charges Office Visits / Consults: [id number] OP Consult L3
[2021-07-10] MEDS: Ciprofloxacin 400 MG/200 ML BAG 200 MG IV (13:57)
[2021-07-10] MEDS: Lactated Ringers 1,000 ML 15 ML IV (14:10)
[2021-07-10] MEDS: Bupivacaine Mpf 0.5% 30 ML VIAL (15:05)
[2021-07-10] MEDS: metroNIDAZOLE 500 MG/100 ML BAG 100 MG IV (15:14)
--- NOTE | 2021-07-10 15:24 | PCM.OPRPT ---
Report of Operation Date of Procedure: 07/10/21 Pre-Operative Diagnosis: Appendicolith, acute appendicitis Post-Operative Diagnosis: Same Surgery/Procedure Performed:: Laparoscopic appendectomy, repair of umbilical hernia primarily Surgeon: Elisha Mckee Type of Anesthesia: General/Supplemental Special Medications: Cipro 400 mg IV, Flagyl 500 mg IV x1 Specimen's removed: Appendix Estimated Blood Loss (mL): < 10 cc Description of Procedure: Indications: 46-year-old female presented to the ER with 2 days abdominal pain localized more in the right lower quadrant today. On workup she was found to have appendicolith at the base of the appendix and a normal white blood cell count. Patient was started on antibiotics in presurgery for acute appendicitis-Cipro 400 mg IV x1, Flagyl 500 mg IV x1. Laparoscopic appendectomy with umbilical hernia repair was elected. Description of the procedure: The patient was placed on operating table in supine position. General anesthesia was induced. A timeout was completed verifying correct patient, procedure, position and special equipment prior to beginning procedure. Abdomen was prepped and draped in usual sterile fashion. Incision was made in the natural skin line above the umbilicus with a 15 blade scalpel. The umbilical hernia was visualized and the fascia was elevated and incised. Entry into the peritoneum was confirmed visually and no bowel was noted in the vicinity of the incision. The Hensley trocar was placed under direct vision. Abdomen insufflated with a pressure of 12-15 mmHg. Patient tolerated insertion well. The scope was inserted and the abdomen inspected. No injuries from initial trocar placement were noted. Minimal amount of fluid was seen in the right lower quadrant. An direct visualization 2 -5 mm trocars were placed one above the symphysis pubis and below the hairline and one in the left lower quadrant lateral to the rectus muscle. Care is taken to avoid injury to the bladder and inferior epigastric vessels. The table was placed in Trendelenburg position with the right side elevated. The appendix was grasped with atraumatic grasper and elevated. It was noted to be inflamed. A window was developed in the mesoappendix at the point between the base of the appendix and the cecum. An endoscopic 45 mm linear cutting stapler blue load was then used to divide and staple the base of the appendix. Enseal is used to divide the mesoappendix The appendix was withdrawn into the Hensley trocar after being placed endoscopically retrieval bag. Appendix was sent to pathology. 5 mm trocar clips were used to stop some mild oozing at the staple line. The appendiceal stump was then irrigated and hemostasis was assured. Fluid was suctioned no other pathology was identified. Secondary trochars were removed under direct visualization. No bleeding was noted trocar sites. The laparoscope withdrawn and the umbilical trocar removed. The abdomen was allowed to collapse. Local anesthesia of 30 mL of 0.5% Marcaine was used at the incision sites. The umbilical trocar site was closed with the [id number] 0 PDS suture. The skin was closed up to clear sutures of 4-0 Monocryl and Steri-Strips. The patient was extubated. The patient tolerated the procedure well and was taken to the postanesthesia care unit in satisfactory condition. Complications None
--- NOTE | 2021-07-10 15:28 | EX.PCM.DISCH ---
Discharge Instructions Diet Discharge Diet: Light diet - advance as tolerated Activity Discharge Activity: May Not Drive (while taking narcotic pain medications.) May shower in (days): 1 Lifting Restrictions: no lifting >20 lbs x 2 wks, no strenuous exercise for 4 wks Dressing / Incision Call your doctor if your incision/area has: Continuous Slow Oozing, Sudden Increased Bleeding, Increased Pain/ Swelling, Increased Redness, Foul Smelling Discharge and Swelling at the incision site Call your doctor if you observe: Fever of 101 or Higher Remove Dressing in: 2 days Cleanse incision/area with: Soap & Water Additional Dressing/Incision Instructions:: Steri-Strips will fall off in 7 to 10 days, if they do not fall off okay to remove after 10 days. Follow Up Care Please Follow Up With: Elisha Mckee MD When: Call the office for a follow-up appointment 2 weeks; after 5 PM and on the weekends call [phone] with any concerns. Test Results: Test results from this visit will be discussed in further detail at your follow-up appointment, if applicable. Discharge Plan Admission Attending Provider: Elisha Mckee Discharge Orders/Prescriptions Prescriptions: New oxycodone-acetaminophen 5-325 mg tablet 1 - 2 tab PO Q6H PRN (Reason: pain) 3 Days Qty: 15 RF: 0 Continued albuterol sulfate 90 mcg/actuation HFA aerosol inhaler 2 puff Q4H PRN PRN (Reason: Dyspnea) RF: 0 fluticasone propionate 50 mcg/actuation spray,suspension 2 spray INTRANASAL DAILY RF: 0 dexlansoprazole [Dexilant] 60 mg Capsule,Biphase Delayed Releas 60 mg PO DAILY RF: 0 sucralfate [Carafate] 1 gram tablet 1 g PO BID Qty: 14 RF: 0 Referrals / Follow Up: ARACELIS CAREY [Other] Disposition Disposition (needs filled in before D/C Order can be placed): Home, Self Care
[2021-07-10] MEDS: Lactated Ringers 1,000 ML 100 ML IV (15:52)
[2021-07-10] MEDS: oxyCODONE 5 MG Tablet PO (17:30)
[2021-07-10] MEDS: Acetaminophen 325 MG Tablet PO (17:30)
== END 2021-07-10 23:59 | disposition home or self-care (01) ==
LOC: ED 13:38 → SDC 13:53
PROVIDERS: Emergency Provider Emergency Medicine; Visit Provider Surgery
PROC: 0DTJ4ZZ Resection of Appendix, Percutaneous Endoscopic Approach (ICD-10-PCS; CPT 44970; principal; 2021-07-10 14:00)
DX: K35.80 Unspecified acute appendicitis (principal); K56.41 Fecal impaction; K42.9 Umbilical hernia without obstruction or gangrene; I34.1 Nonrheumatic mitral (valve) prolapse; J45.909 Unspecified asthma, uncomplicated; M79.7 Fibromyalgia
CPT/HCPCS: 44970; 49652; 00790; 74176; 80053; 81001; 83690; 84703; 85025; 87426; 88304; 99285; J7030; J7120; A4216; C1760; J0744; J2405

== ENCOUNTER 2021-07-12 20:40 | Emergency (ER) | payer OTHER, MEDICAID, SELFPAY ==
[2021-07-12 20:41] VITALS: BP 142/77; PULSE 115; RESP 16; TEMP 36.1; O2SAT 100; BMI 22.6
--- NOTE | 2021-07-12 21:26 | ED.VIS.GI ---
HPI HPI - GI History of Present Illness Chief Complaint: Abd Pain Informant: patient Abdominal Pain/Flank Pain Onset: Today Context: Gradual Onset Timing: Continuous Quality: Cramping Location: Diffuse Worsened by: - (Sitting) Relieved by: Nothing Nausea/Vomiting/Emesis GI Symptom: Positive for Nausea; Negative for Vomiting Diarrhea/Melena/Hematochezia GI Symptom: Negative for Diarrhea, Melena and Hematochezia Associated Symptoms Associated Symptoms: Negative for Dysuria, Frequency and Hematuria Narrative Narrative: Patient presents with abdominal pain that became worse today. Patient had a recent appendectomy for an appendicolith. Patient states that today she noted some pain that is diffuse across her abdomen. Patient states she also noted some pain in her pelvic area. Patient states she felt something protruding from her vaginal area. Patient states it was worse with sitting. Patient admits to nausea but denies any vomiting. Patient denies any diarrhea, melena, or hematochezia. Patient denies any dysuria or hematuria. Patient admits to some subjective chills. PFSH PFS Medical History Encounter for screening for COVID-19 Home Medications albuterol sulfate 2 puff Q4H PRN PRN 03/10/21 [History Last Taken Unknown] fluticasone propionate 2 spray INTRANASAL DAILY 03/10/21 [History Last Taken Unknown] dexlansoprazole [Dexilant] 60 mg PO DAILY 07/08/21 [History Last Taken Unknown] sucralfate [Carafate] 1 g PO BID #14 tab 07/08/21 [Rx Last Taken Unknown] oxycodone-acetaminophen 1 - 2 tab PO Q6H PRN 3 Days #15 tab 07/10/21 [Rx Last Taken Unknown] Allergy/AdvReac Type Severity Reaction Status Date / Time azithromycin [From Zithromax] Allergy Unknown unknown Verified 07/12/21 20:40 codeine Allergy Unknown unknown Verified 07/12/21 20:40 Penicillins Allergy Unknown unknown Verified 07/12/21 20:40 Iodinated Contrast Media Allergy Anaphylaxis Verified 07/12/21 20:40 [CONTRASTS] Surgical History History of hernia repair Hx of knee surgery Social History Smoking Status: Never smoker ROS ROS ED Constitutional Constitutional ED: Reports chills and subjective; Denies fever(s) Eyes Eyes: Denies blurry vision or change in vision ENT ENT ED: Denies rhinorrhea or sore throat Cardiovascular Cardiovascular: Denies chest pain or palpitations Respiratory/Chest Respiratory/Chest: Denies cough or dyspnea Gastrointestinal Gastrointestinal: Reports abdominal pain and nausea; Denies vomiting Genitourinary Genitourinary ED: Denies dysuria or hematuria Musculoskeletal Musculoskeletal: Denies back pain or neck pain Integumentary Denies abscess or rash Neurologic Neurologic: Denies headache(s) or weakness Allergic/Immunologic Allergic/Immunologic ED: Denies mouth swelling or urticaria EXAM Physical Exam Const Vital Signs: 07/12/21 20:41 07/12/21 20:58 Temperature 97 F L Temperature Source Temporal Pulse Rate 115 H Respiratory Rate 16 Blood Pressure 142/77 H Blood Pressure Mean 98 Pulse Ox 100 Oxygen Delivery Method Room Air Room Air Positive well nourished and well developed General Appearance ED: well developed HEENT Reports moist mucous membranes Neck supple and no JVD Resp normal respiratory effort and clear to auscultation bilaterally Cardio regular rate, regular rhythm and no murmurs GI normal to inspection, nondistended, normoactive bowel sounds and non-distended GI Narrative: There is mild diffuse tenderness. There is no guarding noted. Incisions are healing well. There is no surrounding erythema or warmth. There is no discharge or drainage. Palpation: soft; Negative for guarding Narrative: Pelvic exam showed a rectocele in the posterior vaginal wall. There is some mild tenderness over this area. Cervical os is closed. There is very minimal amount of dark blood from the cervical os. Extremity normal to inspection General Extremety ED: Negative for edema or tenderness General Extremity: Negative for edema Neuro oriented x3, CN's II-XII intact bilaterally and no sensory deficits noted Sensorium / Orientation: alert Motor Exam: strength 5/5 throughout Psych mental status grossly normal Skin no rashes or lesions noted MDM MDM MDM Narrative Medical decision making narrative: Patient was given IV fluids, morphine, and Zofran. CBC shows a leukocytosis of 15.5. This is most likely from her recent surgery. Comprehensive metabolic profile was essentially within normal limits. Urinalysis does not show any evidence of urinary tract infection. CT scan of the abdomen pelvis was obtained. There is no acute abnormality noted. There is moderate stool throughout the entire colon. This was interpreted by the radiologist and reviewed by myself. Patient was advised of her findings. Patient was instructed to continue her Dulcolax. Patient was instructed to use Dulcolax suppositories as well. Patient was instructed to drink plenty of fluids. Patient was instructed to follow-up with her surgeon and primary care physician in 5 to 7 days. Patient was instructed return if worse in any way. Patient understood and was agreeable with the plan. All questions were answered. Lab Data Attestation: I reviewed the patient's lab results. Labs: Laboratory Results - last 24 hr 07/12/21 07/12/21 07/12/21 21:28 21:28 22:57 WBC 15.5 H RBC 3.99 L Hgb 11.9 L Hct 36.1 L MCV 90.5 MCH 29.8 MCHC 33.0 RDW Std Deviation 42.5 RDW Coeff of Bryan 12.9 Plt Count 288 MPV 9.9 Immature Gran % (Auto) 0.500 Neut % (Auto) 87.5 H Lymph % (Auto) 8.1 L Wilbarger % (Auto) 3.3 Eos % (Auto) 0.3 Baso % (Auto) 0.3 Absolute Neuts (auto) 13.6 H Absolute Lymphs (auto) 1.25 Nucleated RBC % 0 Sodium 141 Potassium 3.5 Chloride 108 H Carbon Dioxide 29.0 Anion Gap 4 L BUN 10 Creatinine 0.89 Estim Creat Clear Calc 75.51 Est GFR (MDRD) Af Amer 88 Est GFR (MDRD) Non-Af 73 BUN/Creatinine Ratio 11.2 Glucose 110 H Calcium 9.8 Total Bilirubin 0.30 AST 10 L ALT 22 Alkaline Phosphatase 67 Total Protein 7.3 Albumin 4.0 Globulin 3.3 Albumin/Globulin Ratio 1.2 Urine Color Yellow Urine Clarity Clear Urine pH 6.0 Ur Specific Kindred 1.015 Urine Protein Negative Urine Glucose (UA) Normal Urine Ketones Negative Urine Occult Blood 25 H Urine Nitrite Negative Urine Bilirubin Negative Urine Urobilinogen Normal Ur Leukocyte Esterase Negative Urine RBC 0 SEEN Urine WBC 0-5 SEEN Ur Squamous Epith Cells 0-5 SEEN Urine Bacteria 0 SEEN Urine Mucus 0 SEEN Radiography Diagnostic Testing: Clinical Impression(s) from Imaging Studies Abdomen/Pelvis CT 07/12/21 22:46 IMPRESSION: Patient is status post appendectomy. No suspicious postoperative complications noted. No free intraperitoneal fluid, air, or suspicious adenopathy Retained stool throughout the entirety of the colon Electronically Signed: Jesus Reyna MD at 23:12 EST , Service support , Discharge Plan Triage Chief Complaint: Abd Pain ED Provider: Janusz Bentley Dx/Rx/DC Orders Clinical Impression: Rectocele, Constipation Instructions: Pelvic Organ Prolapse, ED Constipation (Adult) Prescriptions: No Action albuterol sulfate 90 mcg/actuation HFA aerosol inhaler 2 puff Q4H PRN PRN (Reason: Dyspnea) RF: 0 fluticasone propionate 50 mcg/actuation spray,suspension 2 spray INTRANASAL DAILY RF: 0 dexlansoprazole [Dexilant] 60 mg Capsule,Biphase Delayed Releas 60 mg PO DAILY RF: 0 sucralfate [Carafate] 1 gram tablet 1 g PO BID Qty: 14 RF: 0 oxycodone-acetaminophen 5-325 mg tablet 1 - 2 tab PO Q6H PRN (Reason: pain) 3 Days Qty: 15 RF: 0 Referrals: ARACELIS CARYE [Other] - 3-5 Days Elisha Mckee MD [STAFF PHYSICIAN] - [facility] appointment Disposition Disposition: Home, Self Care
[2021-07-12 21:40] LABS: Absolute Lymphocyte Count 1.25 X10^3/uL (0.83-4.51); Absolute Neutrophil Count 13.6 X10^3/uL (2.0-7.7); Basophil# 0.04 X10^3/uL; Basophil% 0.3 % (0-1); Eosinophil# 0.05 X10^3/uL; Eosinophils% 0.3 % (0-5); Hematocrit 36.1 % (37-47); Hemoglobin 11.9 g/dL (12.0-15.0); Lymphocyte # 1.25 X10^3/ul (0.83-4.51); Lymphocyte % 8.1 % (19-41); Mean Corpuscular Hgb 29.8 pg (27.0-32.0); Mean Corpuscular Volume 90.5 fL (81-99); Mean Platelet Vol. 9.9 fl (6.2-12.0); Monocyte# 0.51 X10^3/uL; Monocyte% 3.3 % (0-10); NRBC Flagged by Analyzer 0 % (0-5); Neutrophil # 13.55 X10^3/uL (2.7-7.7); Neutrophil % 87.5 % (47-70); Platelet Count 288 K/mm3 (150-450); RBC Distribution Width CV 12.9 % (11.6-14.6); RBC Distribution Width SD 42.5 fl (35.1-43.9); Red Blood Count 3.99 M/mm3 (4.2-5.4); White Blood Count 15.5 K/mm3 (4.4-11.0)
[2021-07-12] MEDS: 0.9% Normal Saline 1,000 ML 1000 ML IV (21:40)
[2021-07-12] MEDS: Morphine 4 MG/ML Syringe IV (21:41)
[2021-07-12] MEDS: Ondansetron 4 MG/2 ML Vial IV (21:42)
[2021-07-12 21:59] LABS: ALB/GLOB Ratio 1.2 RATIO (0.9-2.4); AST(SGOT) 10 U/L (15-37); Alanine Aminotransfer ALT/SGPT 22 U/L (13-56); Alkaline Phosphatase 67 U/L (45-117); Anion Gap 4 (5-15); BUN 10 mg/dL (7-18); BUN/Creat Ratio 11.2 RATIO (10-20); Calcium,Total 9.8 mg/dL (8.5-10.1); Chloride 108 mmol/L (98-107); Creatinine, Serum 0.89 mg/dL (0.55-1.02); EST Glomerular Filtration Rate 73 mL/min (>60); Est Glom Filt Rate - Afr Amer 88 mL/min (>60); Estimated Creatinine Clearance 75.51 ml/min; Globulin 3.3 g/dL (2.2-4.2); Glucose 110 mg/dL (74-106); Potassium 3.5 mmol/L (3.5-5.1); Protein, Total 7.3 g/dL (6.4-8.2); Sodium Level 141 mmol/L (136-145)
--- NOTE | 2021-07-12 22:46 | CT_ITS ---
STUDY: CT ABDOMEN AND PELVIS WITHOUT CONTRAST REASON FOR EXAM: Female, 46 years old. Diffuse abdominal pain RADIATION DOSAGE (If Supplied By Facility): CTDIvol = ( 6.13 ) mGy, DLP = ( 277.32 ) mGycm TECHNIQUE: Transaxial images were obtained from the dome of the diaphragm to the symphysis pubis without oral contrast, and without intravenous contrast. Sagittal and coronal images were reconstructed. Individualized dose optimization techniques were used for this CT. COMPARISON: 07/10/2021 FINDINGS: The visualized lung bases are unremarkable. The visualized portions of the heart are within normal limits. Normal liver. Normal gallbladder and extrahepatic biliary system. Normal spleen. Normal pancreas. Normal bilateral adrenal glands. Normal right kidney. Normal left kidney. Normal visualized stomach. Normal small intestine. Retained stool noted throughout the colon including sigmoid colon and rectum. There has been a recent appendectomy. No suspicious inflammation noted. No demonstrated abscess or evidence of free air. Normal abdominal aorta. Normal inferior vena cava. Normal retroperitoneum. Normal urinary bladder. Normal-appearing uterus. No suspicious adnexal mass or free fluid Normal abdominal wall. Normal osseous structures. CT/Abdomen/Pelvis without Cont IMPRESSION: Patient is status post appendectomy. No suspicious postoperative complications noted. No free intraperitoneal fluid, air, or suspicious adenopathy Retained stool throughout the entirety of the colon Electronically Signed: Jesus Reyna MD at 23:12 EST , Service support ,
[2021-07-12 23:02] LABS: Bacteria 0 SEEN /hpf (None Seen); Mucous, Urine 0 SEEN /hpf (<or=2+); Red Blood Cells-Urine 0 SEEN /hpf (0-5)
[2021-07-12 23:04] LABS: Color, Urine Yellow (Yellow); Glucose, Dipstick Normal (Normal); Ketone-Dipstick Negative (Negative); Leukocyte Esterase-Dipstick Negative /ul (Negative); Nitrite-Dipstick Negative (Negative); Occult Blood-Urine 25 /ul (Negative); Protein-Dipstick Negative (Negative); Specific Gravity, Urine 1.015 (1.002-1.030); Urine Bilirubin Dipstick Negative (Negative); Urine Clarity Clear (Clear); Urine Urobilinogen Normal (Normal)
[2021-07-12 23:13] LABS: Squamous Epithelial Cells - UA 0-5 SEEN /hpf (5-10); White Blood Cells 0-5 SEEN /hpf (0-5)
[2021-07-12 23:50] VITALS: PULSE 102; RESP 16; O2SAT 98
== END 2021-07-12 23:50 | disposition home or self-care (01) ==
PROVIDERS: Emergency Provider Emergency Medicine; Visit Provider Emergency Medicine
DX: N81.6 Rectocele (principal); R11.2 Nausea with vomiting, unspecified; K59.00 Constipation, unspecified
CPT/HCPCS: 74176; 80053; 81001; 85025; 96374; 96375; 99283; J7030; A4216; J2405

== ENCOUNTER → 2022-01-23 | Outpatient (CLI) | payer MEDICAID, SELFPAY ==
--- NOTE | 2022-01-23 09:26 | BI_ITS ---
MAMMOGRAPHY - BILATERAL DIAGNOSTIC REASON FOR EXAM: Female, 46 years old. Tenderness in both upper outer quadrants. PERTINENT HISTORY: Mother with breast cancer. Grandmother with breast cancer. TECHNIQUE: Digital bilateral breast armando (3D mammographic acquisition) in the CC and MLO projections. 2-D mediolateral oblique (MLO) and craniocaudad (CC) views of both breasts were obtained. CAD: Full Field Digital Mammography with Computer Added Detection was performed. COMPARISON: Comparison is made with prior study dated 06/06/2021. FINDINGS: Breast Composition: The breasts are extremely dense, which lowers the sensitivity of mammography. There are no dominant masses or suspicious calcifications. Stable benign-appearing bilateral axillary lymph nodes. No other significant abnormalities are identified. There has been no significant change since the prior study. BI/DIAG MAMM W/CAD, BILAT IMPRESSION: Stable bilateral diagnostic mammogram. With the patient''s history of tenderness in both upper quadrants, correlation with ultrasound is recommended. ASSESSMENT CATEGORY: BIRADS Category 0: Incomplete. Need additional imaging evaluation. A letter regarding these results will be sent to the patient by the facility within 30 days. Approximately 10% of breast cancers are not detected by mammography. A normal mammogram should not delay biopsy of a clinically suspicious abnormality. Electronically Signed: Golden Winters MD at 10:27 EDT ,
--- NOTE | 2022-01-23 09:27 | US_ITS ---
STUDY: ULTRASOUND BREAST - RIGHT REASON FOR EXAM: Female, 46 years old. Pain in the right breast. TECHNIQUE: Axial and longitudinal images of the RIGHT breast were performed with a high resolution ultrasound transducer. # OF IMAGES: 90 COMPARISON: Comparison is made with prior mammogram done earlier in the day. FINDINGS: RIGHT Breast: 2 benign appearing right axillary lymph nodes are seen. The larger lymph node measures 1.1 cm x 0.8 cm x 0.5 cm. IMPRESSION: 2 benign-appearing right axillary lymph nodes. ASSESSMENT CATEGORY: BIRADS Category 2: Benign. A letter regarding these results will be sent to the patient by the facility within 30 days. Electronically Signed: Golden Winters MD at 11:18 EDT , STUDY: ULTRASOUND BREAST - LEFT REASON FOR EXAM: Female, 46 years old. Pain in the left breast. TECHNIQUE: Axial and longitudinal images of the LEFT breast were performed with a high resolution ultrasound transducer. # OF IMAGES: 90 COMPARISON: Comparison is made with prior mammogram done earlier today. FINDINGS: LEFT Breast: There is a 1 cm x 1 cm x 0.6 cm well-defined hypoechoic solid nodule at the 2 o''clock position of the breast at 4 cm of the nipple. Biopsy recommended. Incidental note is made of a 1 cm x 0.6 cm x 0.4 cm benign appearing lymph node in the left axilla. US/Breast Limited Unilateral IMPRESSION: 1 cm x 1 cm x 0.6 cm well-defined hypoechoic solid nodule at the 2 o''clock position of the breast at 4 sites from the nipple. Biopsy recommended. ASSESSMENT CATEGORY: BIRADS Category 4: Suspicious - Biopsy Should Be Considered. A letter regarding these results will be sent to the patient by the facility within 30 days. Electronically Signed: Golden Winters MD at 11:19 EDT ,
== END | disposition home or self-care (01) ==
DX: N64.4 Mastodynia (principal); N63.20 Unspecified lump in the left breast, unspecified quadrant; Z80.3 Family history of malignant neoplasm of breast
CPT/HCPCS: 77062; 76642; 77066; G0279

== ENCOUNTER → 2022-02-02 | Outpatient (CLI) | payer MEDICAID, SELFPAY ==
--- NOTE | 2022-02-02 10:25 | BRBX_PTH ---
PATIENT: ARCHIE NASH LOC: [facility] U#:[id number] AGE/SX: 46/F ROOM: RE02/02/[address]: Dr. Elisha Mckee MD : 1975 BED: DIS: 02/02/2022 SPEC #: [id number] RECD: 02/02/22 12:01 STATUS: JACKI STEPH #: [id number] PEE: 02/02/22 10:[address]: Elisha Mckee DEPT: SURGICAL PATHOLOGY RECD BY: Beatriz De Santiago Tissues: Left breast, NOS Procedures: Surgery Specimen Level IV HEADER OPERATION: Left breast biopsy PRE-OP DIAGNOSIS: Left breast mass TISSUE SUBMITTED: Left breast tissue 2 o?clock, 4-5 cm from nipple MICROSCOPIC DIAGNOSIS Left breast, 2 o?clock, 4-5 cm from nipple, core biopsy: Hyalinized fibroadenoma. Negative for atypia or malignancy. See comment. SJ:thelma 02/03/2022 COMMENT Correlation with clinical, radiologic findings and appropriate follow up are necessary. MICROSCOPIC DESCRIPTION Slides are reviewed. GROSS DESCRIPTION Received in fixative is one container labeled with the patient's name and designated left breast mass, 2 o?clock, 4-5 cm from nipple. The specimen consists of multiple elongated fragments of glasgow-yellow fibroadipose tissue that in aggregate measure 1.5 x 0.5 x 0.1 cm. The entire specimen is submitted in one cassette. / SJ:thelma 02/02/2022 TC:1 CPT: 52200
== END | disposition home or self-care (01) ==
LOC: LABSPEC 12:17
PROVIDERS: Referring Provider Surgery; Visit Provider Surgery
DX: N63.20 Unspecified lump in the left breast, unspecified quadrant (principal)
CPT/HCPCS: 88305

== ENCOUNTER 2022-05-27 09:50 | Emergency (ER) | payer MEDICAID, SELFPAY ==
[2022-05-27 09:50] VITALS: BP 114/78; PULSE 105; RESP 18; TEMP 36.5; O2SAT 99; BMI 22.6
[2022-05-27] MEDS: Albuterol 2.5 MG/3 ML VIAL.NEB. INHALATION ×3 (10:31)
[2022-05-27 10:34] VITALS: PULSE 115; RESP 18
[2022-05-27] MEDS: predniSONE 20 MG Tablet 60 MG PO (10:57)
[2022-05-27 11:00] VITALS: O2SAT 99
--- NOTE | 2022-05-27 11:31 | EX.ED.VIS.UR ---
HPI HPI - URI History of Present Illness Chief Complaint: Shortness of Breath Detail of Chief Complaint: Exacerbation of asthma due to upper respiratory infection Informant: patient Onset/Context/Timing Onset: Days Context: Sudden Onset Timing: Continuous and Waxes and wanes Quality: Chest congestion and wheezing Location: Respiratory Current Severity: Mild Maximum Severity: Moderate Worsened by: - (Coughing); Not Worsened By Swallowing, Eating Solids or Drinking Liquids Relieved by: Not Relieved By Tylenol or NSAIDs Associated Symptoms Associated Symptoms: Positive for Nasal Congestion, Myalgias, Shortness of Breath and Nonproductive cough; Negative for Headache, Sinus Pressure, Nausea, Vomiting, Diarrhea, Chest Pain, Hemoptysis or Productive Cough Narrative Narrative: Patient is a 47-year-old woman with history of asthma. She does not smoke. She presents with rhinorrhea, congestion and nonproductive cough. She denies myalgias arthralgias. She denies photophobia, neck pain neck stiffness. She denies history of medic fever, heart murmur or SBE. She denies rash. Prior similar symptoms: No Recent Illness/Hospitalization: No ROS ROS ED Constitutional Constitutional ED: Denies chills, fever(s), subjective, sweats or weight loss Eyes Eyes: Denies blurry vision, change in vision or diplopia ENT ENT ED: Reports rhinorrhea and sore throat; Denies ear pain Cardiovascular Cardiovascular: Denies chest pain, orthopnea, palpitations, paroxysmal nocturnal dyspnea or racing heartbeat Respiratory/Chest Respiratory/Chest: Reports cough, dyspnea and dyspnea on exertion; Denies orthopnea or paroxysmal nocturnal dyspnea Gastrointestinal Gastrointestinal: Denies abdominal pain, diarrhea, nausea or vomiting Musculoskeletal Musculoskeletal: Denies arthralgias, back pain, myalgias or neck pain Integumentary Denies Abrasions or rash Neurologic Neurologic: Denies headache(s), paresthesias or weakness Endocrine Endocrinology: Denies cold intolerance or heat intolerance Hematologic/Lymphatic Hematologic/Lymphatic: Denies easy bleeding or easy bruising [facility] Medical History Anxiety Asthma Encounter for screening for COVID-19 GERD (gastroesophageal reflux disease) History of gastric ulcer URI (upper respiratory infection) Home Medications albuterol sulfate 90 mcg/actuation aerosol inhaler 2 puff Q4H PRN PRN Dyspnea 03/10/21 [History Last Taken Unknown] fluticasone propionate 50 mcg/actuation nasal spray,suspension 2 spray intranasal DAILY 03/10/21 [History Last Taken Unknown] dexlansoprazole 60 mg capsule,biphase delayed release (Dexilant) 60 mg PO DAILY 07/08/21 [History Last Taken Unknown] sucralfate 1 gram tablet (Carafate) 1 g PO BID #14 tabs 07/08/21 [Rx Last Taken Unknown] inhalational spacing device (Aerochamber MV spacer) #1 device 05/27/22 [Rx Last Taken Unknown] prednisone 20 mg tablet 60 mg PO DAILY #15 TABLETS 05/27/22 [Rx Last Taken Unknown] Allergy/AdvReac Type Severity Reaction Status Date / Time azithromycin [From Zithromax] Allergy Unknown unknown Verified 05/27/22 09:53 codeine Allergy Unknown unknown Verified 05/27/22 09:53 Penicillins Allergy Unknown unknown Verified 05/27/22 09:53 Iodinated Contrast Media Allergy Anaphylaxis Verified 05/27/22 09:53 [CONTRASTS] Family History Mother Breast cancer Grandmother Breast cancer Grandmother Breast cancer Surgical History History of appendectomy History of hernia repair History of right breast biopsy (~01/2022) Hx of knee surgery Social History (Updated 05/27/22 @ 11:[address] Nestor Mason MD) household members: spouse Smoking Status: Never smoker substance use type: does not use EXAM Physical Exam Const Vital Signs: 05/27/22 09:50 05/27/22 10:34 05/27/22 11:00 Temperature 97.7 F L Temperature Source Temporal Pulse Rate 105 H 115 H Respiratory Rate 18 18 Respiratory Effort Short of Breath Respiratory Depth Normal Respiratory Pattern Normal Normal Blood Pressure 114/78 Blood Pressure Mean 90 Pulse Ox 99 Oxygen Delivery Method Room Air Room Air Positive well nourished and well developed General Appearance ED: well developed and NAD; Negative for pallor HEENT Reports moist mucous membranes normocephalic and atraumatic Face and Sinus: Negative for sinus tenderness Throat: posterior oropharynx normal Eyes PERRL and EOMs intact bilaterally General Eye ED: Negative for pale conjunctiva or scleral icterus Neck no lymphadenopathy, supple, no meningeal signs and no JVD Resp normal respiratory effort and No clear to auscultation bilaterally Auscultation: wheezes expiratory wheezes and throughout Cardio S1 normal heart sound, S2 normal heart sound and no murmurs Rate: tachycardic Rhythm: regular rhythm GI non-tender, non-distended and no masses Extremity normal to inspection and full ROM Neuro oriented x3, CN's II-XII intact bilaterally and no sensory deficits noted Sensorium / Orientation: alert Psych mental status grossly normal Skin General Skin Exam: Negative for jaundice or pallor Lesions: no lesions Rashes: no rashes MDM MDM MDM Narrative Medical decision making narrative: With upper respiratory symptoms. We will treat with prednisone and albuterol. Since this is a viral illness that has exacerbated her asthma imaging is not required. Treatment and Re-Evaluation Narrative: Patient was reassessed at 1135. She is no longer wheezing. She still has a nonproductive cough. She does report improvement. Plan is discharged with spacer and burst of prednisone. Discharge Plan Triage Chief Complaint: Shortness of Breath ED Provider: Nestor Mason Dx/Rx/DC Orders Clinical Impression: Acute bronchitis, Asthma exacerbation Instructions: ED Bronchitis, No Antibiotic (Adult) Prescriptions: New (DME) Aerochamber MV Spacer See Rx Instructions .Route Qty: 1 0RF Rx Instructions: As directed prednisone 20 mg tablet 60 mg PO DAILY Qty: 15 0RF No Action albuterol sulfate 90 mcg/actuation HFA aerosol inhaler 2 puff Q4H PRN PRN (Reason: Dyspnea) Label Comments: inhale 2 puffs by mouth and INTO THE LUNGS every 4 to 6 hours if needed for cough or wheezing fluticasone propionate 50 mcg/actuation spray,suspension 2 spray INTRANASAL DAILY Label Comments: instill 2 sprays into each nostril once daily dexlansoprazole [Dexilant] 60 mg Capsule,Biphase Delayed Releas 60 mg PO DAILY sucralfate [Carafate] 1 gram tablet 1 g PO BID Qty: 14 0RF Stand Alone Forms: ED Work / School Excuse Primary Care Provider: Care Physician,No Primary Referrals: Care Physician,No Primary [Primary Care Provider] - Doctor,Your [Non-Staff] - Disposition Disposition: Home, Self Care
--- NOTE | 2022-05-27 11:45 | RAD_ITS ---
STUDY: X-RAY CHEST REASON FOR EXAM: Female, 47 years old. Fever and cough TECHNIQUE: Single AP portable view of the chest. COMPARISON: 03/10/2021 FINDINGS: EKG leads overlie the chest The lungs are clear and expanded. There is no demonstrated pleural abnormality. Normal size heart. Normal mediastinum and isidro. Normal visualized pulmonary arteries. Normal visualized aortic arch and descending thoracic aorta. Normal visualized thoracic spine. Normal visualized ribs, clavicles, and shoulders. There is no demonstrated abnormality of the visualized soft tissue structures of the upper abdomen. RAD/Chest 1 View (Portable) IMPRESSION: Normal x-ray examination of the chest. Electronically Signed: Jesus Reyna MD at 12:05 EST ,
[2022-05-27 12:04] VITALS: PULSE 93; RESP 16; O2SAT 99
== END 2022-05-27 12:32 | disposition home or self-care (01) ==
PROVIDERS: Emergency Provider Emergency Medicine; Visit Provider Emergency Medicine
DX: J20.9 Acute bronchitis, unspecified (principal); J45.901 Unspecified asthma with (acute) exacerbation; B34.9 Viral infection, unspecified; R06.02 Shortness of breath
CPT/HCPCS: 71045; 94640; 99284

== ENCOUNTER 2022-11-06 17:35 | Emergency (ER) | payer MEDICAID, SELFPAY ==
[2022-11-06 17:35] VITALS: BP 136/82; PULSE 92; RESP 16; TEMP 36.6; O2SAT 99; BMI 25.0
--- NOTE | 2022-11-06 17:52 | EKG12_ITS ---
Test Reason : SOB Blood Pressure : / mmHG Vent. Rate : 087 BPM Atrial Rate : 087 BPM P-R Int : 130 ms QRS Dur : 078 ms QT Int : 376 ms P-R-T Axes : 064 047 052 degrees QTc Int : 452 ms Normal sinus rhythm Normal ECG Confirmed by AMY MOCK, MOOKIE ([id number]), science editor MIRA VELA ([id number]) on 11/09/2022 11:34:31 AM Referred By: Confirmed By:MOOKIE REYES MD
--- NOTE | 2022-11-06 17:55 | EX.ED.DYSGE1 ---
HPI <JOSE Caldera - Last Filed: 11/06/22 19:01> History of Present Illness Chief Complaint: Weakness Narrative Narrative: 47-year-old female with PMH of asthma states for the last few days she has had right lower rib cage pain. Yesterday she was working in the yard carrying heavy rocks down a slope when she felt flushed, sweaty, and lightheaded and passed out. She thinks she was out there for several minutes and came to and walked inside. She monitors her heart rate on her Apple Watch and it was around 115 but came down with fluids. She still just feeling weak and jittery so followed up with her primary care today who did an EKG and recommended she come to the ER for blood work. Patient denies chest pain but does note exertional shortness of breath when going up the stairs. She used her albuterol inhaler prior to arrival. No nausea, vomiting, or abdominal pain. PFSH <JOSE Caldera - Last Filed: 11/06/22 19:01> [facility] Medical History Anxiety Asthma Encounter for screening for COVID-19 GERD (gastroesophageal reflux disease) History of gastric ulcer URI (upper respiratory infection) Home Medications albuterol sulfate 90 mcg/actuation aerosol inhaler 2 puff Q4H PRN PRN Dyspnea 03/10/21 [History Last Taken Unknown] fluticasone propionate 50 mcg/actuation nasal spray,suspension 2 spray intranasal DAILY 03/10/21 [History Last Taken Unknown] dexlansoprazole 60 mg capsule,biphase delayed release (Dexilant) 60 mg PO DAILY 07/08/21 [History Last Taken Unknown] sucralfate 1 gram tablet (Carafate) 1 g PO BID #14 tabs 07/08/21 [Rx Last Taken Unknown] inhalational spacing device (Aerochamber MV spacer) #1 device 05/27/22 [Rx Last Taken Unknown] prednisone 20 mg tablet 60 mg PO DAILY #15 TABLETS 05/27/22 [Rx Last Taken Unknown] Allergy/AdvReac Type Severity Reaction Status Date / Time azithromycin [From Zithromax] Allergy Unknown unknown Verified 05/27/22 09:53 codeine Allergy Unknown unknown Verified 05/27/22 09:53 Penicillins Allergy Unknown unknown Verified 05/27/22 09:53 Iodinated Contrast Media Allergy Anaphylaxis Verified 05/27/22 09:53 [CONTRASTS] Family History Mother Breast cancer Grandmother Breast cancer Grandmother Breast cancer Surgical History History of appendectomy History of hernia repair History of right breast biopsy (~01/2022) Hx of knee surgery Social History (Updated 05/27/22 @ 11:[address] Nestor Mason MD) household members: spouse Smoking Status: Never smoker substance use type: does not use ROS <JOSE Caldera - Last Filed: 11/06/22 19:01> ROS ED ROS Narrative Constitutional: Negative for fever, chills, malaise. CVS: Positive for syncope. Negative for palpitations. Respiratory: Positive for shortness of breath. Negative for cough. GI: Negative for abdominal pain, nausea, vomiting. : Negative for dysuria. Neuro: Negative for headache. EXAM <JOSE Caldera - Last Filed: 11/06/22 19:01> Physical Exam Narrative Exam Narrative: CONST: Patient sitting in no acute distress. EYES: Normal inspection. ENT: Normal inspection, moist mucous membranes. NECK: Normal inspection. RESP: No respiratory distress, CTAB. CVS: Regular rate and rhythm, no murmur, no gallop. ABD: Soft and nontender, no guarding or rebound, nondistended. Back: Normal inspection, no CVA tenderness. SKIN: Color normal, no rash, warm, dry, intact. EXTREMITIES: Normal appearance, no pedal edema. No calf tenderness. NEURO: Oriented x4. PSYCH: Normal affect. Const Vital Signs: 11/06/22 17:35 11/06/22 18:05 Temperature 97.8 F Temperature Source Temporal Pulse Rate 92 Respiratory Rate 16 Respiratory Effort Normal Non-Labored Respiratory Pattern Normal Blood Pressure 136/82 H Blood Pressure Mean 100 Pulse Ox 99 Oxygen Delivery Method Room Air <Dr. Abner Guaman DO - Last Filed: 11/06/22 18:53> Physical Exam Const Vital Signs: 11/06/22 17:35 11/06/22 18:05 Temperature 97.8 F Temperature Source Temporal Pulse Rate 92 Respiratory Rate 16 Respiratory Effort Normal Non-Labored Respiratory Pattern Normal Blood Pressure 136/82 H Blood Pressure Mean 100 Pulse Ox 99 Oxygen Delivery Method Room Air [facility] <JOSE Caldera - Last Filed: 11/06/22 19:01> [facility] Narrative Medical decision making narrative: History gathered from: Patient and Patient complains of few days of right-sided chest pain and yesterday a syncopal episode after lifting rocks in the yard. Today she still feels weak and short of breath with exertion. Sent in by PCP for evaluation. Patient appears well and nontoxic. Afebrile with normal vital signs. She has no external signs of head trauma or injury on exam. Neurologically intact. Normal heart and lung sounds with some reproducible tenderness over the right lower rib cage. No bruising or deformity. No abdominal tenderness. She is moving all extremities and neurovascularly intact. EKG is sinus rhythm with no ectopy or ischemic changes and troponin is negative. CBC and BMP unremarkable with no evidence of dehydration. I did not order D-dimer since she is PERC and Wells criteria negative. CXR shows no acute process. Patient given 1 L of IV fluids here, continues to have normal vital signs, is able to ambulate without symptoms. I feel she can be discharged home to follow-up with her primary care. She most likely had a vasovagal episode. Return for any new or worsening symptoms. Lab Data Labs: Laboratory Results - last 24 hr 11/06/22 11/06/22 18:00 18:00 WBC 10.9 RBC 4.28 Hgb 12.9 Hct 41.3 MCV 96.5 MCH 30.1 MCHC 31.2 L RDW Std Deviation 47.8 H RDW Coeff of Brayn 13.5 Plt Count 300 MPV 9.8 Immature Gran % (Auto) 0.700 Neut % (Auto) 86.1 H Lymph % (Auto) 9.9 L Cochran % (Auto) 3.1 Eos % (Auto) 0.0 Baso % (Auto) 0.2 Absolute Neuts (auto) 9.4 H Absolute Lymphs (auto) 1.08 Nucleated RBC % 0 Sodium 140 Potassium 4.1 Chloride 106 Carbon Dioxide 27.0 Anion Gap 7 BUN 13 Creatinine 0.97 Estim Creat Clear Calc 68.56 Est GFR (MDRD) Af Amer 80 Est GFR (MDRD) Non-Af 66 BUN/Creatinine Ratio 13.4 Glucose 158 H Calcium 9.4 Total Bilirubin 0.30 AST 11 L ALT 28 Alkaline Phosphatase 68 Troponin I High Sens < 3 L Total Protein 7.2 Albumin 4.0 Globulin 3.2 Albumin/Globulin Ratio 1.2 Radiography Diagnostic Testing: Clinical Impression(s) from Imaging Studies Chest X-Ray 11/06/22 18:10 IMPRESSION: No radiographic evidence of acute cardiopulmonary disease. Electronically Signed: Shan Braswell DO at 18:50 EDT , <Dr. Abner Guaman DO - Last Filed: 11/06/22 18:53> [facility] Lab Data Attestation: I reviewed the patient's lab results. Lab results narrative: EKG with normal sinus rhythm, normal axis, normal intervals, no STEMI, no ischemic changes CBC without leukocytosis, severe anemia, no thrombocytopenia. CMP without evidence of acute kidney injury, significant electrolyte abnormality, anion gap, no evidence hepatobiliary pathology. Troponin is negative, no evidence of myocardial ischemia Labs: Laboratory Results - last 24 hr 11/06/22 11/06/22 18:00 18:00 WBC 10.9 RBC 4.28 Hgb 12.9 Hct 41.3 MCV 96.5 MCH 30.1 MCHC 31.2 L RDW Std Deviation 47.8 H RDW Coeff of Bryan 13.5 Plt Count 300 MPV 9.8 Immature Gran % (Auto) 0.700 Neut % (Auto) 86.1 H Lymph % (Auto) 9.9 L Cochran % (Auto) 3.1 Eos % (Auto) 0.0 Baso % (Auto) 0.2 Absolute Neuts (auto) 9.4 H Absolute Lymphs (auto) 1.08 Nucleated RBC % 0 Sodium 140 Potassium 4.1 Chloride 106 Carbon Dioxide 27.0 Anion Gap 7 BUN 13 Creatinine 0.97 Estim Creat Clear Calc 68.56 Est GFR (MDRD) Af Amer 80 Est GFR (MDRD) Non-Af 66 BUN/Creatinine Ratio 13.4 Glucose 158 H Calcium 9.4 Total Bilirubin 0.30 AST 11 L ALT 28 Alkaline Phosphatase 68 Troponin I High Sens < 3 L Total Protein 7.2 Albumin 4.0 Globulin 3.2 Albumin/Globulin Ratio 1.2 Radiography Chest X-Ray - ED: Read by ED Physician Diagnostic Testing: Clinical Impression(s) from Imaging Studies Chest X-Ray 11/06/22 18:10 IMPRESSION: No radiographic evidence of acute cardiopulmonary disease. Electronically Signed: Shan Braswell at 18:50 EDT Reading Location ID and State: [facility] / [place] Tel [phone], Service support , I have personally reviewed the patient's chest x-ray. Chest x-ray is unremarkable for pulmonary edema, pneumothorax, pneumonia or focal cardiopulmonary abnormality. Treatment and Re-Evaluation :: ED attending note: I evaluated the patient in conjunction with the MALIK. I agree with his/her statements and above findings. I have personally performed a face to face assessment of the patient and have reviewed the MALIK Note. I performed a substantive portion of the visit including all aspects of the following. I personally saw the patient performed chart review, physical exam, reviewed labs, imaging (if obtained), and formulated a treatment and management plan. History of present illness: Patient endorses several days of profuse watery diarrhea followed by hours of yard work on a warm day. She states she felt flushed, nauseous had tingling and passed out. She regained consciousness walks inside and showed no signs of a postictal state. She denies severe or thunderclap headache prior to passing out, denies chest pain or shortness of breath prior to passing out, denies abdominal pain prior to passing out. She denies history of connective tissue diseases. Denies family history of early cardiac . The patient denies recent surgery in the last 4 weeks or immobilization in the last 3 days, denies previous diagnosis of DVT or PE, hemoptysis, unilateral leg swelling or malignancy with treatment the last 6 months. No estrogen use noted. Patient denies sudden onset of pain, no tearing sensation, no migratory symptoms, no new numbness, weakness or loss of sensation. Patient denies family history or personal history of Marfan syndrome or Logan-Danlos. Exam: Nursing triage notes reviewed, Vital signs reviewed Primary Survey Airway: Intact Breathing: Bilateral breath sounds Circulation: Palpable bilateral femorals, Palpable bilateral radial, Palpable bilateral DP and Palpable bilateral PT Disability / Spine precautions GCS Score: Eye Openin Verbal Response: 5 Motor Response: 6 Secondary Survey Constitutional: Please see MDM Head: Atraumatic, Midface stable, NO jaw malocclusion, No Cephalohematoma, and No Lacerations noted Eye: Pupils equal round and reactive to light, Extraocular muscles intact and No periorbital ecchymosis or stepoff, no evidence of entrapment ENT: Oropharynx clear, no lacerations, no hemotympanum, no raccoon eyes or martines sign Cervical spine / Neck: No cervical spine bony tenderness, crepitance, or stepoff deformity Trachea midline Lungs: Clear to auscultation, No asymmetric rise and No crepitus, no flail chest Cardiac: Regular rate and rhythm and No murmurs Abdomen: Soft, Nontender and No rebound, no pulsatile abdominal masses, no auscultated bruits Pelvis: Pelvis stable to compression : No evidence of genital injury Back: No midline bony tenderness to thoracic/lumbar/sacral spines Neuro: At baseline, intact strength and sensation in bilateral upper and lower extremities. 2+ patellar reflexes bilaterally. Extremities: NO gross Deformities, symmetric pulses in bilateral upper and lower extremities Psych: Normal affect Nursing triage notes reviewed, Vital signs reviewed MDM/plan: Chief Complaint: Syncope, shortness of breath, weak External records reviewed: No recent cardiac catheterizations, stress test or echocardiogram Patient was initially hemodynamically stable, afebrile, nontoxic-appearing. Primary secondary trauma surveys I considered the following differential diagnosis: Arrhythmia, myocardial ischemia, anemia, electrolyte abnormality, dehydration, PE, subarachnoid hemorrhage, ectopic , aortic dissection, ruptured AAA I considered pulmonary embolism as a potential diagnosis however the patient was PERC negative, low risk Wells score, had no signs of right heart strain on EKG, had a negative troponin. I have a low suspicion for PE and as such I do not think a CTA or D-dimer is beneficial at this time. It is my clinical impression that further testing would be greater risk and very little benefit in this clinical setting. I also considered aortic dissection as a potential diagnosis however the patient has no active chest pain, vital sign abnormalities I would suggest dissection, pulse deficits family or personal history of connective tissue disorders I have a low suspicion for aortic dissection . I considered AAA as a potential diagnosis however the patient has no abdominal pain, pulsatile abdominal masses, pulse deficits to suggest AAA. Patient is in a monogamous relationship with a female. She is certain she is not . She had no abdominal pain. I have a low suspicion for ectopic . We obtained labs which showed no evidence of significant dehydration, electrolyte abnormalities, anemia. EKG had no signs of arrhythmia, right heart strain, WPW, ARVD or Brugada syndrome. The patient's presentation is most consistent with vasovagal syncope versus dehydration and overexertion. Given the lack of structural heart disease, severe anemia, physical exam findings she does not meet criteria for inpatient mission at this time. She is appropriate discharge home. Strict return precautions were discussed. Outpatient follow-up was discussed as well. Factors affecting care: History of GERD, asthma Social determinants of health: Never smoker History obtained from others: The patient significant other Shared decision making: I will have a discussion with the patient and or visitors regarding risk/benefits of further testing or admission. They will be made aware of of the risk/benefits inherent in this decision they will be given the opportunity to voice understanding. Consults: None Discharge Plan Triage Chief Complaint: Weakness ED Midlevel Provider: Shayy Bloom ED Provider: Abner Guaman Dx/Rx/DC Orders Clinical Impression: Vasovagal syncope Instructions: Causes of Syncope Prescriptions: No Action albuterol sulfate 90 mcg/actuation HFA aerosol inhaler 2 puff Q4H PRN PRN (Reason: Dyspnea) Label Comments: inhale 2 puffs by mouth and INTO THE LUNGS every 4 to 6 hours if needed for cough or wheezing fluticasone propionate 50 mcg/actuation spray,suspension 2 spray INTRANASAL DAILY Label Comments: instill 2 sprays into each nostril once daily dexlansoprazole [Dexilant] 60 mg Capsule,Biphase Delayed Releas 60 mg PO DAILY sucralfate [Carafate] 1 gram tablet 1 g PO BID Qty: 14 0RF (DME) Aerochamber MV Spacer See Rx Instructions .Route Qty: 1 0RF Rx Instructions: As directed prednisone 20 mg tablet 60 mg PO DAILY Qty: 15 0RF Primary Care Provider: Care Physician,No Primary Referrals: Care Physician,No Primary [Primary Care Provider] - Activity Restrictions/Additional Instructions: All of your testing today was normal. I suspect you had vasovagal syncope that occurred during your recent diarrhea causing fluid loss and working outside. Please continue to rest, drink fluids, and follow-up with your primary care doctor. If symptoms worsen return to the ER.
[2022-11-06] MEDS: 0.9% Normal Saline 1,000 ML 999 ML IV (18:07)
--- NOTE | 2022-11-06 18:10 | RAD_ITS ---
INDICATION: chest pain EXAMINATION/TECHNIQUE: X-RAY - XR Chest 2 Views COMPARISON: May 27 2022 FINDINGS: LINES/DEVICES: None. LUNGS: No consolidation, edema or effusion. No pneumothorax. MEDIASTINUM AND CARDIOVASCULAR STRUCTURES: Cardiac silhouette not enlarged. Central airways and mediastinal contour are unremarkable. BONES AND SOFT TISSUES: Unremarkable. RAD/Chest PA and Lateral IMPRESSION: No radiographic evidence of acute cardiopulmonary disease. Electronically Signed: Shan Braswell DO at 18:50 EDT ,
[2022-11-06 18:16] LABS: Absolute Lymphocyte Count 1.08 X10^3/uL (0.83-4.51); Absolute Neutrophil Count 9.4 X10^3/uL (2.0-7.7); Basophil# 0.02 X10^3/uL; Basophil% 0.2 % (0-1); Hematocrit 41.3 % (37-47); Hemoglobin 12.9 g/dL (12.0-15.0); Lymphocyte # 1.08 X10^3/ul (0.83-4.51); Lymphocyte % 9.9 % (19-41); Mean Corp Hgb Conc 31.2 g/dL (32-36); Mean Corpuscular Hgb 30.1 pg (27.0-32.0); Mean Corpuscular Volume 96.5 fL (81-99); Mean Platelet Vol. 9.8 fl (6.2-12.0); Monocyte# 0.34 X10^3/uL; Monocyte% 3.1 % (0-10); NRBC Flagged by Analyzer 0 % (0-5); Neutrophil # 9.36 X10^3/uL (2.7-7.7); Neutrophil % 86.1 % (47-70); Platelet Count 300 K/mm3 (150-450); RBC Distribution Width CV 13.5 % (11.6-14.6); RBC Distribution Width SD 47.8 fl (35.1-43.9); Red Blood Count 4.28 M/mm3 (4.2-5.4); White Blood Count 10.9 K/mm3 (4.4-11.0)
[2022-11-06 18:31] LABS: ALB/GLOB Ratio 1.2 RATIO (0.9-2.4); AST(SGOT) 11 U/L (15-37); Alanine Aminotransfer ALT/SGPT 28 U/L (13-56); Alkaline Phosphatase 68 U/L (45-117); Anion Gap 7 (5-15); BUN 13 mg/dL (7-18); BUN/Creat Ratio 13.4 RATIO (10-20); Calcium,Total 9.4 mg/dL (8.5-10.1); Chloride 106 mmol/L (98-107); Creatinine, Serum 0.97 mg/dL (0.55-1.02); EST Glomerular Filtration Rate 66 mL/min (>60); Est Glom Filt Rate - Afr Amer 80 mL/min (>60); Estimated Creatinine Clearance 68.56 ml/min; Globulin 3.2 g/dL (2.2-4.2); Glucose 158 mg/dL (74-106); Potassium 4.1 mmol/L (3.5-5.1); Protein, Total 7.2 g/dL (6.4-8.2); Sodium Level 140 mmol/L (136-145); Troponin-I HS < 3 pg/mL (3.0-54.0)
[2022-11-06 18:56] VITALS: RESP 18
== END 2022-11-06 19:36 | disposition home or self-care (01) ==
PROVIDERS: Physician Assistant; Emergency Provider Emergency Medicine; Visit Provider Emergency Medicine
DX: R55 Syncope and collapse (principal)
CPT/HCPCS: 71046; 80053; 84484; 85025; 93005; 96360; 99284; J7030

== ENCOUNTER → 2023-01-14 | Outpatient (CLI) | payer MEDICAID, SELFPAY ==
[2023-01-14 16:26] LABS: Hematocrit 42.5 % (37-47); Hemoglobin 13.3 g/dL (12.0-15.0); Mean Corp Hgb Conc 31.3 g/dL (32-36); Mean Corpuscular Hgb 30.2 pg (27.0-32.0); Mean Corpuscular Volume 96.4 fL (81-99); Mean Platelet Vol. 9.8 fl (6.2-12.0); Platelet Count 268 K/mm3 (150-450); RBC Distribution Width CV 13.4 % (11.6-14.6); RBC Distribution Width SD 48.1 fl (35.1-43.9); Red Blood Count 4.41 M/mm3 (4.2-5.4); White Blood Count 10.6 K/mm3 (4.4-11.0)
[2023-01-14 17:15] LABS: Anion Gap 6 (5-15); BUN 13 mg/dL (7-18); BUN/Creat Ratio 11.8 RATIO (10-20); Calcium,Total 9.2 mg/dL (8.5-10.1); Chloride 103 mmol/L (98-107); EST Glomerular Filtration Rate 57 mL/min (>60); Est Glom Filt Rate - Afr Amer 69 mL/min (>60); Glucose 179 mg/dL (74-106); Potassium 4.1 mmol/L (3.5-5.1); Sodium Level 137 mmol/L (136-145)
== END | disposition home or self-care (01) ==
LOC: LAB 16:03
PROVIDERS: Visit Provider Physician Assistant
DX: Z01.818 Encounter for other preprocedural examination (principal)
CPT/HCPCS: 36415; 80048; 85027

== ENCOUNTER → 2023-01-27 | Outpatient (CLI) | payer MEDICAID, SELFPAY ==
--- NOTE | 2023-01-27 12:20 | BI_ITS ---
MAMMOGRAPHY - BILATERAL SCREENING REASON FOR EXAM: Female, 47 years old. Routine annual screening examination. PERTINENT HISTORY: Mother with breast cancer. Grandmother with breast cancer. History of prior left ultrasound-guided breast biopsy. TECHNIQUE: Digital bilateral breast kathryn (3D mammographic acquisition) in the CC and MLO projections. 2-D mediolateral oblique (MLO) and craniocaudad (CC) views of both breasts were obtained. CAD: Full Field Digital Mammography with Computer Added Detection was performed. COMPARISON: Comparison is made with prior examination dated June 06, 2021 and January 23, 2022. FINDINGS: Breast Composition: The breasts are extremely dense, which lowers the sensitivity of mammography. There are no dominant masses or suspicious calcifications. A tissue clip marker from prior biopsy is seen in the deep upper lateral aspect of the left breast. Stable appearance of the bilateral axillary lymph nodes. No other significant abnormalities are identified. There has been no significant change since the prior study. BI/SCRN MAMM (CAD)W/KATHRYN BILAT IMPRESSION: Stable bilateral screening mammogram. Yearly follow-up mammogram recommended. (A) ASSESSMENT CATEGORY: BIRADS Category 2: Benign. A letter regarding these results will be sent to the patient by the facility within 30 days. Approximately 10% of breast cancers are not detected by mammography. A normal mammogram should not delay biopsy of a clinically suspicious abnormality. [id number] Electronically Signed: Golden Winters MD at 14:03 EDT ,
== END | disposition home or self-care (01) ==
LOC: OPBI 12:19
PROVIDERS: Referring Provider Surgery; Visit Provider Surgery
DX: Z12.31 Encounter for screening mammogram for malignant neoplasm of breast (principal); Z80.3 Family history of malignant neoplasm of breast
CPT/HCPCS: 77063; 77067

== ENCOUNTER → 2023-02-10 | Outpatient (CLI) | payer MEDICAID, SELFPAY ==
--- NOTE | 2023-02-10 14:58 | VDLE_ITS ---
Reason For Study: PAIN RIGHT GSV is normal. CFV is compressible, spontaneous, phasic, competent and demonstrates normal augmentation. FV is compressible, spontaneous, phasic, competent and demonstrates normal augmentation. POP V is compressible, spontaneous, phasic, competent and demonstrates normal augmentation. T/P Trunk is compressible. PTV is compressible. RT PerV is compressible. Gastrocnemius V and SSV are compressible. Procedure This is a venous duplex using B-mode, color flow and spectral Doppler. Exam performed in department. A preliminary report was called and/or faxed to JOSE Lynch @ [phone] @ 3:25PM. VL/Venous Duplex US, Unilateral Interpretation Summary Deep veins of the right lower extremity are patent and compressible segmentally . There is no evidence of right lower extremity deep vein thrombosis. Valvular competence patrick ears intact within the proximal deep venous system on the right . The right great saphenous vein a ppears patent and compressible segmentally. The right small saphenous vein is patent and compress ible. Ordering Physician: Mikaela Lebron Referring Physician: OTD Performed By: Ericka Holden, ANA, RVT
== END | disposition home or self-care (01) ==
LOC: CVS 14:57
PROVIDERS: Referring Provider Physician Assistant Surgical; Visit Provider Physician Assistant Surgical
DX: S83.241D Other tear of medial meniscus, current injury, right knee, subsequent encounter (principal); M79.661 Pain in right lower leg; X58.XXXA Exposure to other specified factors, initial encounter
CPT/HCPCS: 93971